=== PATIENT | male | born 1955 | race Caucasian/White ===

== ENCOUNTER 2020-04-12 18:57 | Emergency (ER) | payer BC ==
--- OUTSIDE RECORDS SUMMARY | 2020-04-12 18:59 | XMS REPORT | Clinical Summary ---
:1955 Author Organization [facility] Address [address] [place] [address] Care Team Providers Name Role Phone Latrell Quiroga MD Primary Care Provider Allergies No Known Allergies Medications Medication Sig Dispensed Refills Start Date End Date Status losartan (COZAAR) 100 Take 100 mg by 0 Active MG tablet mouth daily. Active Problems No known active problems Social History Tobacco Use Types Packs/Day Years Used Date Never Smoker Smokeless Tobacco: Never Used Alcohol Use Drinks/Week oz/Week Comments Yes Sex Assigned at Date Recorded Not on file Job Start Date Occupation Industry Not on file Not on file Not on file Travel History Travel Start Travel End No recent travel history available. 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
--- OUTSIDE RECORDS SUMMARY | 2020-04-12 19:02 | XMS REPORT | Continuity of Care Document ---
:1955 Author Organization [facility] t Address [address] [place] [address] Care Team Providers Name Role Phone Latrell Quiroga MD Primary Care Physician Alexi Hoyos Attending Clinician George Stone Attending Clinician Jomar Hernandez Attending Clinician Alexi Hoyos Admitting Clinician Jomar Hernandez Admitting Clinician Problems Condition Condition Condition Status Onset Resolution Last Treating Co mments Source Name Details Category Date Date Treatment Clinician Date G96.0 - Diagnosis Active 2020-03-24 Me moria CEREBROSPI 6-16 11:51:00 l NAL FLUID G96.0 - 00:01: Herm debra LEAK CEREBROSPI 00 NAL FLUID LEAK Active 03/18/2020 [facility] [place] 9999 Diagnosis Active 2020-01-31 Mem oria 4-20 11:44:00 l 9999 00:00: Kvng 00 Active 01/21/2020 [facility] XRAY Diagnosis Active 2020-01-22 Mem oria 4-15 16:18:00 l XRAY 00:00: [place] 00 Active 01/16/2020 [facility] SMALL Diagnosis Active 2016-06-16 Mem oria BOWEL 9-05 15:21:00 l OBSTRUCTIO SMALL 00:00: Caryl nn N BOWEL 00 OBSTRUCTIO N Active 06/07/2016 [facility] Benign Problem Active 2020-03-26 Memor ia intracrani 22:43:47 l al Benign Kvng hypertensi intracrani on al (disorder) hypertensi on (disorder) Active Problem 03/26/2020 [facility] Cerebrospi Problem Active 2020-03-26 M emoria nal fluid 22:43:47 l leak [place] (disorder) Cerebrospi nal fluid leak (disorder) Active Problem 03/26/2020 [facility] Cerebrospi Problem Active 2020-03-26 M emoria nal fluid 22:43:47 l rhinorrhea Gabriel n (disorder) Cerebrospi nal fluid rhinorrhea (disorder) Active Problem 03/26/2020 [facility] Hypertensi Problem Active 2020-03-26 M emoria ve 22:43:47 l disorder, [place] systemic Hypertensi arterial ve (disorder) disorder, systemic arterial (disorder) Active Problem 03/26/2020 [facility] Sleep Problem Active 2020-03-26 Memor ia apnea 22:43:47 l (finding) Sleep Gabriel n apnea (finding) Active Problem 03/26/2020 does not use cpap [facility] OTHER Diagnosis Active 2016-06-16 Mem oria INTESTINAL 15:21:00 l OBSTRUCTIO OTHER Caryl nn N INTESTINAL OBSTRUCTIO N Active [facility] History of Past Illness Condition Condition Condition Status Onset Resolution Last Treating Co mments Source Name Details Category Date Date Treatment Clinician Date Chronic Problem Resolve 2020-03-26 2020-03-26 Memoria inflammati d 05-25 22:43:47 22:43:47 l on of 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 Optic disc Problem Resolve 2020-03-26 2020-03-26 Memoria edema d 04-06 22:43:47 22:43:47 l (disorder) Optic 00:00: Caryl nn disc edema 00 (disorder) Resolved 04/06/2017 Problem 03/26/2020 [facility], [facility] [place] Allergies, Adverse Reactions, Alerts Allergy Allergy Status Severity Reaction(s) Onset Inactive Treating Comm ents Source Name Type Date Date Clinician No Known No Known Active rTinaori a Medicati Medicati l on on Kvng Allergfarheen Cuadra s s Social History Social Habit Start Date Stop Date Quantity Comments Source Sex Assigned At [facility] ethodist Alcohol intake 2018-06-26 2018-06-26 Current drinker [place] 00:00:00 00:00:00 of alcohol (finding) Social History 2016-06-07 2016-06-07 [facility] ermann 23:41:31 23:41:31 Smoking Status Start Date Stop Date Source Never smoker [facility] Medications Ordered Filled Start Stop Current Ordering Indication Dosage Frequency Signature Comments Components Source Medication Medication Date Date Medication? Clinician (SIG) Name Name Bacitracin 2019-0 Yes 1 appl, Jermaine sena 0.5 UNT/MG 5-01 TOP, BID, l Topical 13:38: Apply to Gabriel n Ointment 00 affected area, X 7 day, # 30 gm, 0 Refill(s) Dulcolax 2019-0 No Notes: Memoria Laxative 5- (Same As: l 12:33: Dulcolax, [place] 00 Bisco-Lax) Labetalol 2019-0 No 10 mg, 2 Jermaine sena 5-01 mL, Route: l 04:37: IVP, Drug 00 form: INJ, Q15Min, Dosing Weight 113.2, kg, PRN Hypertensi on, Start date: 01/31/20 23:37:00 CDT, Duration: 30 day, Stop date: 03/01/20 23:36:00 CDT, 0 heparin 2020-0 No Notes: Memoria sodium, 4-30 porcine l porcine 17:00: heparin Kvng 2500 UNT/ML 00 Injectable Solution Sodium 2019-0 Yes 2 spray, Memoria Chloride 4-30 NASAL, l 0.111 16:07: Q2H, # 30 Kvng MEQ/ML 00 mL, 0 Nasal [place] Refill(s) [Cardwell brand of sodium chloride] Amoxicillin 2019-0 Yes 1 tab, PO, Memoria 875 MG / 4-30 [id number], X l Clavulanate 16:07: 8 day, # [place] 125 MG Oral 00 16 tab, 0 Tablet Refill(s) [Augmentin 875-mg] Docusate 2020-0 Yes 100 mg = 1 Mem oria Sodium 100 4-30 cap, PO, l MG Oral 16:07: BID, # 28 Caryl nn Capsule 00 cap, 0 [Colace] Refill(s) magnesium 2020-0 Yes 8.725 gm = Me moria citrate 4-30 150 ml, l 58.2 MG/ML 16:07: PO, ONCE, [place] Oral 00 if no Solution bowel movement in couple days, # 300 ml, 0 Refill(s) sennosides, 2020-0 Yes 17.2 mg = M emoria HALFWAY 8.6 MG 4-30 2 tab, PO, l Oral Tablet 16:07: Bedtime, He [place] 00 PRN Constipati on, X 10 day, # 20 tab, 0 Refill(s) Acetaminoph 2020-0 Yes 1 tab, PO, Memoria en 300 MG / 4-30 Q6H, PRN l Codeine 16:07: Pain, X 15 Herm debra Phosphate 00 day, # 60 30 MG Oral tab, 0 Tablet Refill(s) [Tylenol with Codeine #3] Ondansetron 2020-0 Yes 4 mg = 1 Me moria 4 MG Oral 4-30 tab, PO, l Tablet 16:07: Q8H, PRN Kvng [Zofran] 00 Nausea/vom iting, # 30 tab, 0 Refill(s) Sodium 2020-0 No 2 spray, Memoria Chloride 4-30 Route: l 0.111 13:00: NASAL, Kvng MEQ/ML 00 Q2H, Drug Nasal [place] form: [Cardwell SOLN, brand of Start sodium date: chloride] 01/31/20 8:00:00 CDT, Duration: 30 day, Stop date: 03/01/20 6:00:00 CDT, 0 Amoxicillin 2020-0 No 1 tab, Jermaine sena 875 MG / 4-29 Route: PO, l Clavulanate 23:00: Drug Form: [place] 125 MG Oral 00 TAB, Tablet Dosing [Augmentin Weight 875-mg] 113.2, kg, [id number], Start date: 01/30/20 18:00:00 CDT, Duration: 10 day, Stop date: 02/09/20 6:00:00 CDT, 0 Losartan 2019-0 No Notes: Memoria 4-29 (Same as: l 22:00: Cozaar) ondansetron 2019- No Route: IV, Memoria (ANES) - Drug form: l 19:12: INJ, ONCE, Stop date: 01/30/20 14:12:00 CDT sugammadex 2019-0 No Route: IV, M emoria (ANES) - Drug form: l 19:12: SOLN, ONCE, Stop date: 01/30/20 14:12:00 CDT sodium 2019-0 No Notes: Memoria chloride - (Same as: l nasal spray 19:00: Cardwell, Deep Sea Nasal [place]). propofol 2019-0 No Route: IV, Mem oria (ANES) 01-29 Drug form: l 18:36: INJ, ONCE, Stop date: 01/30/20 13:36:00 CDT magnesium 2019-0 No Route: IV, Me moria sulfate 01-29 Drug form: l (ANES) 17:55: INJ, ONCE, Stop date: 01/30/20 12:55:00 CDT rocuronium 2019-0 No Route: IV, M emoria (ANES) 01-29 Drug form: l 17:30: INJ, ONCE, Stop date: 01/30/20 12:30:00 CDT sugammadex 2019-0 No Notes: Memor ia - (Same as: l 16:20: [place]ion) Hydralazine 2019-0 No Notes: Jermaine sena - (Same as: l 15:58: Apresoline ) Push over 5 minutes Labetalol 2019-0 No 10 mg, 2 Jermaine sena 4-29 mL, Route: l 15:58: IVP, Drug form: INJ, Q5Min, Dosing Weight 113.2, kg, PRN Elevated BP, Start date: 01/30/20 10:58:00 CDT, Duration: 5 doses or times, Stop date: 01/31/20 10:00:00 CDT, 0 Acetaminoph 2019- No Notes: Max Memoria en 01-29 acetaminop l 15:58: hen 4000 mg/day (4 gm/day). (Same as: Tylenol Extra Strength) Oxycodone No Notes: Memori a Hydrochlori 01-29 (Same as: l de 5 MG 15:58: Roxicodone Herm debra Oral Tablet ) Hydromorpho No Notes: Jermaine sena ne 01-29 Same as l 15:58: Dilaudid Flumazenil No Notes: Memor ia 01-29 (Same as: l 15:58: Romazicon) Naloxone No Notes: Memoria 01-29 Same as l 15:58: Narcan Ondansetron No Notes: Jermaine sena 01-29 (Same as: l 15:58: Zofran) MEDICATION WASTE Product Size: 4 mg Product Wasted: ___ mg dexamethaso No Route: IV, Memoria ne (ANES) 01-29 Drug form: l 15:05: INJ, ONCE, Stop date: 01/30/20 10:05:00 CDT phenylephri No Route: IV, Memoria ne (ANES) 01-29 Drug form: l 100 14:23: INJ, Start [place] date: 01/30/20 9:23:00 CDT, Stop date: 01/30/20 10:23:00 CDT ePHEDrine No Route: IV, Me moria (ANES) 01-29 Drug form: l 14:09: INJ, ONCE, Stop date: 01/30/20 9:09:00 CDT phenylephri 0 No Route: IV, Memoria ne (ANES) 01-29 Drug form: l 14:09: INJ, ONCE, [place] Stop date: 01/30/20 9:09:00 CDT Cefazolin 2019- Yes Notes: Memori a 01-29 (Same as l 14:00: Ancef) Docusate No Notes: Memoria 01-29 (Same as: l 14:00: Colace) (Do Not Crush) sennosides, No Notes: Jermaine sena HALFWAY 01-29 (Same as: l 14:00: Senokot) Saline No Notes: Memoria Flush 0.9% 01-29 (Same as: l 14:00: BD Posiflush) ceFAZolin No Route: IV, Me moria (ANES) 01-29 Drug form: l 13:59: INJ, ONCE, Stop date: 01/30/20 8:59:00 CDT lidocaine No Route: IV, Me moria (ANES) 01-29 Drug form: l 13:34: INJ, ONCE, Stop date: 01/30/20 8:34:00 CDT propofol No Route: IV, Mem oria (ANES) 01-29 Drug form: l 13:34: INJ, ONCE, Stop date: 01/30/20 8:34:00 CDT rocuronium No Route: IV, M emoria (ANES) 01-29 Drug form: l 13:34: INJ, ONCE, Stop date: 01/30/20 8:34:00 CDT fentaNYL No Route: IV, Mem oria (ANES) 01-29 Drug form: l 13:34: INJ, ONCE, Stop date: 01/30/20 8:34:00 CDT propofol No Route: IV, Mem oria (ANES) 10 01-29 Drug form: l mg 13:10: INJ, Start date: 01/30/20 8:10:00 CDT, Stop date: 01/30/20 9:10:00 CDT remifentani No Route: IV, Memoria l (ANES) 1 01-29 Drug form: l mg 13:10: INJ, Start date: 01/30/20 8:10:00 CDT, Stop date: 01/30/20 9:10:00 CDT Sodium No 1,000 mL, Memori a Chloride 01-29 Rate: 100 l 0.9% IV 13:04: ml/hr, Kvng 1,000 mL 00 Infuse over: 10 hr, Route: IV, Dosing Weight 113.2 kg, Total Volume: 1,000, Start date: 01/30/20 8:04:00 CDT, Duration: 30 day, Stop date: 02/29/20 8:03:00 CDT, 2.39, m2, 0 Acetaminoph 2019- No Notes: Do M emoria en - not exceed l 13:04: 4 gm/day. [place] (Same as: Tylenol) Acetaminoph No Notes: Jermaine sena en 325 MG / 01-29 (Same as: l Hydrocodone 13:04: [place] Caryl nn Bitartrate 00 325/5) Do 5 MG Oral not exceed Tablet 4gm/day of acetaminop hen. Acetaminoph No Notes: Do M emoria en 325 MG / 01-29 not exceed l Hydrocodone 13:04: 4gm/day of [place] Bitartrate 00 acetaminop 10 MG Oral hen. Tablet (Same as: [place] 325/10) Bisacodyl 2019-0 No Notes: Memori a - (Same As: l 13:04: Dulcolax, Bisco-Lax) Metoclopram 2019-0 No Notes: Jermaine sena juanis 01-29 (Same as: l 13:04: Reglan) Ondansetron 2019-0 No Notes: Jermaine sena - (Same as: l 13:04: Zofran) MEDICATION WASTE Product Size: 4 mg Product Wasted: ___ mg Dilaudid 2019-0 No Notes: Memoria - Same as l 13:04: Dilaudid Tums 2019-0 No Notes: Memoria - (Same As: l 13:04: Tums) Calcium Carbonate 500 mg = 200 mg elemental calcium Dose = mg calcium carbonate ( mg elemental calcium) Labetalol 2019-0 No 20 mg, 4 Jermaine sena 4-29 mL, Route: l 13:04: IVP, Drug form: INJ, Q15Min, Dosing Weight 113.2, kg, Start date: 01/30/20 8:04:00 CDT, Duration: 3 doses or times, Stop date: 01/30/20 8:34:00 CDT, 0 Hydralazine No 20 mg, 1 Me moria 4-29 mL, Route: l 13:04: IVP, Drug form: INJ, Q4H, Dosing Weight 113.2, kg, PRN Hypertensi on, Start date: 01/30/20 8:04:00 CDT, Duration: 30 day, Stop date: 02/29/20 8:03:00 CDT, 0 Saline 2020- No Notes: Memoria Flush 0.9% 01-29 (Same as: l 13:04: BD Posiflush) Insulin No Notes: Memoria regular 01-29 (Same as: l 13:04: Humulin R) Roll in palms of hands gently; Do not shake vigorously . WASTE: F/P - Black; E - Municipal Trash Bin Stable for 31 days at room temperatur e Expires in days from ____Date Lactated No Route: IV, Mem oria Ringers 01-29 Total l Injection 12:40: Volume: Caryl nn IV (ANES) 00 1,000, 1000 mL Start date: 01/30/20 7:40:00 CDT, Stop date: 01/30/20 8:40:00 CDT Isolyte S No Notes: Memori a PH 7.4 01-29 (Same as: l 1,000 mL 12:21: Isolyte S PH7.4, Normosol-R PH 7.4, Plasma-Lyt e A ) Tylenol No Notes: Max Jermaine sena 01-29 acetaminop l 12:09: hen 4000 Kvng 00 mg/day (4 gm/day). (Same as: Tylenol Extra Strength) ceFAZolin No Notes: Memori a 01-29 (Same as l 04:00: Ancef) Vitamin D3 2019-0 Yes QPM, 0 Memor ia 01-21 Refill(s) l 14:35: Kvng 00 12 HR No 500 mg = 1 Memori a Acetazolami 4-02 cap, PO, l de 500 MG 20:42: Daily, # Herm debra Extended 00 30 cap, 2 Release Refill(s), Capsule Pharmacy: [Diamox] [facility] topwillismate Yes 25 mg = 1 Me moria 25 MG Oral 3-04 tab, PO, l Tablet 20:24: Bedtime, # Caryl nn [Topamax] 20 30 tab, 4 Refill(s), Pharmacy: [facility] topiramate No 25 mg = 1 Me moria 25 MG Oral 1-29 tab, PO, l Tablet 19:53: Bedtime, X Caryl nn [Topamax] 00 30 day, # 30 tab, 4 Refill(s), Pharmacy: [facility] losartan Yes 100mg QD Take 100 [place] (COZAAR) 9-24 mg by Methodi 100 MG 10:13: mouth st tablet 12 daily. Losartan No Notes: Memoria 06-14 (Same as: l 15:38: Cozaar) fat No Notes: Memoria emulsion, 06-13 (Same as: l intravenous 03:00: Intralipid , Liposyn) Infuse through a 1.2 micron filter TPN No Notes: Per Memoria solution, 06-13 hospital l adult 2,042 03:00: policy, Her mcgee mL 00 bag must be changed every 24hr. Sodium No 250 mL, Memoria Chloride 06-13 Route: l 0.9% IV 00:06: IVPB, Start date: 06/12/16 19:06:00 CDT, Duration: 30 day, Stop date: 07/12/16 19:05:00 CDT, PRN Line Flush BD Normal No Notes: Memori a Saline 06-13 (Same as: l Flush 00:06: BD Posiflush) Protonix No Notes: For Mem oria 06-12 IV push l 12:30: reconstitu te with 10 ml 0.9% sodium chloride and push over 2 minutes. (Same as: Protonix) Lovenox No Notes: Memoria 06-10 (Same as: l 19:00: Lovenox) Kvng 00 Reglan No Notes: Memoria 06-08 (Same as: l 17:00: Reglan) [place] 00 Lovenox No Notes: Memoria 06-08 (Same as: l 14:00: Lovenox) Kvng 00 phenol No Notes: Memoria 06-07 Chlorasept l 15:36: ic [place] Kvng (Same as: Chlorasept ic, Sore Throat [place]) WASTE: F/P - Black; E - Municipal Trash Bin losartan 50 Yes 50 mg = 1 M emoria mg oral 06-07 tab, PO, l tablet 12:55: Daily, # Kvng 00 30 tab, 0 Refill(s) Morphine No Notes: Memoria 06-07 (Same l 12:44: as:MORPhin Kvng 00 e Sulfate) Zofran No Notes: Memoria 06-07 (Same as: l 12:43: Zofran) [place] MEDICATION WASTE Product Size: 4 mg Product Wasted: ___ mg D5W 1/2NS + No Notes: Jermaine sena KCL 20mEq/L 06-07 PREMIX IV l 1000ml 12:42: - Do Not [place] (Premix) 00 Alter 1,000 mL WASTE: F/P - Sink; E - Municipal Trash Bin Vital Signs Vital Name Observation Time Observation Value Comments Source Systolic (mm Hg) 2020-02-01 15:25:00 Jermaine rial Kvng Diastolic (mm Hg) 2020-02-01 15:25:00 Mem orial [place] Heart Rate 2020-02-01 15:25:00 [facility] [place] Heart Rate 2020-02-01 13:37:00 [facility] [place] Systolic (mm Hg) 2020-02-01 13:37:00 Jermaine rial Kvng Diastolic (mm Hg) 2020-02-01 13:37:00 Mem orial Kvng Temperature Oral (F) 2020-02-01 12:07:00 97.8 F Memorial Kvng Heart Rate 2020-02-01 12:07:00 Memorial Kvng Respitory Rate 2020-02-01 12:07:00 Memori al Kvng Systolic (mm Hg) 2020-02-01 12:07:00 Jermaine rial Kvng Diastolic (mm Hg) 2020-02-01 12:07:00 Mem orial Kvng Temperature Oral (F) 2020-02-01 09:06:00 98.3 F Memorial Kvng Respitory Rate 2020-02-01 09:06:00 Memori al [place] Respitory Rate 2020-02-01 05:38:00 Memori al Kvng Temperature Oral (F) 2020-02-01 04:14:00 97.6 F Memorial Kvng Height 2020-01-30 11:03:00 177.8 cm Memorial Kvng Weight 2020-01-30 11:03:00 [facility] [place] BMI Calculated 2020-01-30 11:03:00 Memori al [place] Height 2020-01-22 14:47:00 177.8 cm [facility] [place] Weight 2020-01-22 14:47:00 [facility] [place] BMI Calculated 2020-01-22 14:47:00 Memori al [place] Systolic (mm Hg) 2020-01-18 16:00:00 Jermaine rial [place] Diastolic (mm Hg) 2020-01-18 16:00:00 Mem orial Kvng Systolic (mm Hg) 2020-01-18 15:30:00 Jermaine rial Kvng Diastolic (mm Hg) 2020-01-18 15:30:00 Mem orial [place] Systolic (mm Hg) 2020-01-18 13:45:00 Jermaine rial [place] Diastolic (mm Hg) 2020-01-18 13:45:00 Mem orial Kvng Respitory Rate 2020-01-18 13:15:00 Memori al Kvng Heart Rate 2020-01-18 13:15:00 [facility] [place] Height 2020-01-18 13:10:00 177.8 cm [facility] [place] Weight 2020-01-18 13:10:00 Memorial Kvng BMI Calculated 2020-01-18 13:10:00 Memori al [place] Systolic (mm Hg) 2020-01-08 16:03:00 Jermaine rial [place] Diastolic (mm Hg) 2020-01-08 16:03:00 Mem orial [place] Heart Rate 2020-01-08 16:03:00 [facility] [place] Respitory Rate 2020-01-08 16:03:00 Memori al [place] Height 2020-01-08 16:03:00 177.8 cm Memorial Kvng Weight 2020-01-08 16:03:00 Memorial Kvng BMI Calculated 2020-01-08 16:03:00 Memori al Kvng Systolic (mm Hg) 2018-10-31 19:32:00 Jermaine rial Kvng Diastolic (mm Hg) 2018-10-31 19:32:00 Mem orial Kvng Heart Rate 2018-10-31 19:32:00 [facility] [place] Respitory Rate 2018-10-31 19:32:00 Memori al [place] Height 2018-10-31 19:32:00 170.18 cm Memorial Kvng Weight 2018-10-31 19:32:00 [facility] [place] BMI Calculated 2018-10-31 19:32:00 Memori al [place] Systolic (mm Hg) 2016-06-16 13:19:00 Jermaine rial Kvng Diastolic (mm Hg) 2016-06-16 13:19:00 Mem orial [place] Respitory Rate 2016-06-16 13:19:00 Memori al [place] Temperature Oral (F) 2016-06-16 13:19:00 98.3 F [facility] [place] Heart Rate 2016-06-16 13:19:00 Memorial Kvng Heart Rate 2016-06-16 09:36:00 [facility] [place] Respitory Rate 2016-06-16 09:36:00 Memori al Kvng Temperature Oral (F) 2016-06-16 09:36:00 98.4 F [facility] [place] Systolic (mm Hg) 2016-06-16 09:36:00 Jermaine rial Kvng Diastolic (mm Hg) 2016-06-16 09:36:00 Mem orial [place] Heart Rate 2016-06-16 05:00:00 Memorial Kvng Temperature Oral (F) 2016-06-16 05:00:00 98.2 F [facility] [place] Respitory Rate 2016-06-16 05:00:00 Memori al Kvng Systolic (mm Hg) 2016-06-16 05:00:00 Jermaine rial [place] Diastolic (mm Hg) 2016-06-16 05:00:00 Mem orial [place] Weight 2016-06-12 14:00:00 [facility] [place] Height 2016-06-12 14:00:00 177.8 cm [facility] [place] BMI Calculated 2016-06-12 14:00:00 Memori al [place] Weight 2016-06-07 15:06:00 Memorial Kvng BMI Calculated 2016-06-07 15:06:00 Memori al [place] Height 2016-06-07 15:06:00 177.8 cm Memorial Kvng BMI Calculated 2016-06-07 15:02:00 Memori al Kvng Weight 2016-06-07 15:02:00 [facility] Kvng Height 2016-06-07 15:02:00 177.8 cm [facility] Kvng Procedures Procedure Date / Time Performed Performing Clinician [facility] e Spinal puncture, lumbar, 2020-01-18 15:41:00 Mem orial [place] diagnostic; Vasectomy reversal 1992-10-03 00:00:00 [facility] Kvng Vasectomy 1982-10-03 00:00:00 [facility] Her mcgee Appendectomy 1957 00:00:00 [facility] Planned Activity Planned Date Details Comments Source Future Scheduled 2020-05-03 INFLUENZA VACCINE [place] [facility] 00:00:00 [code = INFLUENZA VACCINE] Future Scheduled 2007 COLONOSCOPY SCREENING [place] [facility] 00:00:00 [code = COLONOSCOPY SCREENING] Future Scheduled 2007 SHINGLES VACCINES [place] [facility] 00:00:00 (#1) [code = SHINGLES VACCINES (#1)] Encounters Start End Encounter Admission Attending Care Care Encounter Source Date/Time Date/Time Type Type Clinicians Facility Department ID 2020-01-30 Inpatient [facility] [facility] 05:25:00 2020-03-24 2020-03-24 Outpatient Romain, [facility] [id number] 11:41:00 23:59:00 Lloyd Truong 2020-01-30 2020-02-01 Outpatient Romani, [facility] [id number] 05:25:00 11:30:00 Lloyd Truong 2020-01-31 2020-01-31 Outpatient RIGO StoneSCHRIC MISCHER [id number] 15:30:00 15:30:00 Juliano Vazquez 2020-01-18 2020-01-18 Outpatient Hoyos, [facility] [id number] 07:58:00 23:59:00 Lloyd Alexi 00 2020-01-18 2020-01-18 Outpatient [id number] 07:58:00 07:58:00 2020-01-08 2020-01-08 Outpatient Chase MHMISCHER MHMISCHER [id number] 10:30:00 23:59:59 Juliano 08 George 2020-01-01 2020-01-01 Outpatient Chase MHMISCHER MHMISCHER [id number] 14:30:00 23:59:59 Juliano 06 George 2019-06-15 2019-06-16 Outpatient MHMISCHER MHMISCHER [id number] 10:31:55 23:59:59 2019-03-26 2019-03-27 Outpatient MHMISCHER MHMISCHER [id number] 09:35:04 23:59:59 2019-02-27 2019-02-27 Outpatient Chase, MHMISCHER MHMISCHER [id number] 13:15:00 13:15:00 Juliano 05 George 2018-10-31 2018-10-31 Outpatient Chase MHMISCHER MHMISCHER [id number] 13:15:00 23:59:59 Juliano 04 George 2018-07-04 2018-07-04 Outpatient Chase MHMISCHER MHMISCHER [id number] 10:00:00 10:00:00 Juliano 03 George 2016-06-07 2016-06-16 Outpatient [facility] [id number] 06:40:00 15:10:00 Lopez Smallwood Results Test Description Test Time Test Comments Results Result Comments Source CHEM PANEL 2020-01-31 131 [facility] Caryl nn 13:09:00 CHEM PANEL 2020-01-31 18 [facility] Caryl nn 13:09:00 CHEM PANEL 2020-01-31 1.38 [facility] Caryl nn 13:09:00 CHEM PANEL 2020-01-31 141 [facility] Caryl nn 13:09:00 CHEM PANEL 2020-01-31 3.6 [facility] Caryl nn 13:09:00 CHEM PANEL 2020-01-31 117 [facility] Caryl nn 13:09:00 CHEM PANEL 2020-01-31 19 [facility] Caryl nn 13:09:00 CHEM PANEL 2020-01-31 8.4 [facility] Caryl nn 13:09:00 CHEM PANEL 2020-01-31 8.6 [facility] Caryl nn 13:09:00 CHEM PANEL 2020-01-31 54 [facility] Caryl nn 13:09:00 HEMATOLOGY 2020-01-31 13.0 [facility] Caryl nn 13:09:00 HEMATOLOGY 2020-01-31 4.12 [facility] Caryl nn 13:09:00 HEMATOLOGY 2020-01-31 12.2 [facility] Caryl nn 13:09:00 HEMATOLOGY 2020-01-31 36.4 [facility] Caryl nn 13:09:00 HEMATOLOGY 2020-01-31 88.5 [facility] Caryl nn 13:09:00 HEMATOLOGY 2020-01-31 13:09:00 Test Item Value Reference Range Interpretation Comme nts MCH (test code = MCH) 29.6 pg 27.0-31.0 [facility] [id number] 13:09:0033.4[facility]annHEMATOLOGY 2020-01-31 13:09:0013.8[facility] KysqtybPOQQEETJBR5608-75-24 13:09:26616Kuzzzwej PtjobyhRLQSYFLFRX7857-01-16 13:09:008.5[facility] [id number] 13:09:00Normal (01/31/20 8:09 AM)[facility] DwdlrpfAOMZYZZTHL0870-00-28 13:09:00 Normal (01/31/20 8:09 AM)[facility] SzafqsiTAOBZOOFSI5813-54-07 13:09:0087.1 [facility] HnwnatrPZTTJDFMZM3162-01-86 13:09:004.8[facility] HermannHEMATOLOGY 2020-01-31 13:09:007.9[facility] [id number] 13:09:000.2[facility] TwykxgcQMRHONFFZZ0096-94-54 13:09:0011.4[facility] KozqojtADFJJDNYDL4748-22-33 13:09:000.6[facility] MbgpwijBZHIVHVSQJ8452-98-55 13:09:001.0[facility]annBLOOD BANK AQDSUKC8497-07-95 11:12:00Negative (01/30/20 6:12 AM)[facility]annCHEM LGDVJ5996-81-03 11:12:40220Gvsqlnmr HermannCHEM IOPAK5914-22-69 11:12:0021 [facility]annCHEM DWXFC8198-75-74 11:12:001.29[facility]annCHEM PANEL 2020-01-30 11:12:31563Swrnlpdx HermannCHEM YBAVO3215-48-96 11:12:004.0[facility]annCHEM MNENR2211-04-78 11:12:28856Gzpxwuuq HermannCHEM PIPZA2121-34-22 11:12:0019[facility] HermannCHEM BYSYI9114-77-18 11:12:009.1[facility]annCHEM ORKVP2430-57-19 11:12:0012.0[facility] HermannCHEM NECNF3725-64-16 11:12:0059 [facility] WzyfliyIFRCOIYURG5484-57-70 11:12:0073.2[facility]annHEMATOLOGY 2020-01-30 11:12:0017.7[facility] KvdzyjbZJLPFFRURV8894-09-83 11:12:007.2[facility] VrecemjJIICVCHYTX4349-93-11 11:12:001.5[facility] LzswwsaNIABUITRKT1042-43-68 11:12:000.4[facility] SuxgbpaOALOVVSGAN0018-27-10 11:12:005.3[facility] Kvng ZUPUOXCTSH5357-01-92 11:12:001.3[facility] AalsfcsASBUOPEIBY0900-78-57 11:12:000.5 [facility] MwmglqqIFCTYAQMBV9151-57-11 11:12:000.1[facility]annHEMATOLOGY 2020-01-30 11:12:007.2[facility] GzedetwEQLYHLEILU4545-79-09 11:12:005.22[facility] HuwcdlyXULBICXNOX2967-95-38 11:12:0015.8[facility] YdndhfrGJCFFPQWPB9867-12-21 11:12:0046.5[facility] AtnsslfTJNVNTCVFN0116-85-44 11:12:0089.2[facility] HEYYODFPQO4912-96-24 11:12:00 Test Item Value Reference Range Interpretation Comments MCH (test code = MCH) 30.3 pg 27.0-31.0 [facility] JdidtrpEDCRNQSYOL9517-93-66 11:12:0033.9[facility]annHEMATOLOGY 2020-01-30 11:12:0013.4[facility] XdcjrhkFVYPYSCEWE8130-93-90 11:12:07901Kihqmzcy FcdzbooRHYACGNRGJ3473-99-07 11:12:008.5[facility] YvkmnawDKQYKIXOYL1635-74-38 11:12:00 Test Item Value Reference Range Interpretation Comments PT (test code = PT) 12.8 s 12.0-14.7 [facility] BuxebrkQDISNCBQNK4987-33-83 11:12:00 Test Item Value Reference Range Interpretation Comments INR (test code = INR) 0.96 1 0.85-1.17 [facility] LtpthqzWOJCAMMHYE1342-51-40 11:12:00 Test Item Value Reference Range Interpretation Comments PTT (test code = PTT) 28.8 s 22.9-35.8 [facility] CpgyfexEGSJWRKZOX5654-30-64 12:19:00Not Detected (01/28/20 7:19 AM) [facility]annCHEM WOWJI7806-40-76 20:52:0013[facility]annCHEM PANEL 2020-01-01 20:52:001.19[facility]annCHEM VQZWF9706-96-23 20:52:0065[facility]annCHE[facility] KJFOE3414-93-76 20:52:0075[facility]annCHEM KUBJV5277-91-64 09:50:000.90[facility]annCHEM DNPJJ5003-77-88 09:50:003.9[facility]annCHEM WLNOE3467-19-56 09:50:24895Fhhawqne HermannCHEM PJAGV1178-28-87 09:50:12193 [facility] MBRBA4800-35-34 09:50:0025[facility]annCHEM PANEL 2016-06-16 09:50:0011.9[facility]annCHEM FZZFV6778-35-10 09:50:008.6[facility]annCHEM NUXGN2168-19-55 09:50:0094[facility]annCHEM SDUET1187-07-97 09:50:78377Yckrzhmj HermannCHEM TECOW5969-02-14 09:50:0014[facility]annCHEM MTSKP8307-88-26 09:50:003.5[facility]annCHEM VYDTZ4447-20-22 09:50:002.1 [facility] UTZMN0198-47-33 10:35:002.3[facility]annCHEM PANEL 2016-06-15 10:35:0083[facility]annCHEM HLDNZ2815-15-67 10:35:96077Rauxzuvk HermannCHEM LXPBG4938-98-90 10:35:0017[facility]annCHEM SHJZN2561-89-04 10:35:001.00[facility]annCHEM QLECO0446-26-62 10:35:008.5[facility]annCHEM WNLYP6328-09-01 10:35:0012.7[facility]annCHEM OKUKS0700-60-39 10:35:01078 [facility]CHE[facility] IFUPS8043-52-99 10:35:003.7[facility]annCHEM PANEL 2016-06-15 10:35:75778Snuksbev HermannCHEM APFWL2655-14-94 10:35:0025[facility]annCHEM JMFHA4694-45-31 10:35:003.6[facility]annCHEM OGPYF0177-84-25 10:29:14931Eqdsrnin HermannCHEM PMOIY4875-92-97 10:29:0018[facility]annCHEM GXMNN9742-01-72 10:29:45870Tyaqemmj HermannCHEM JSSCX3809-61-64 10:29:0026 [facility] RDYVA1291-12-70 10:29:008.5[facility]annCHEM PANEL 2016-06-14 10:29:0014.8[facility]annCHEM LYEKG9652-88-77 10:29:003.8[facility]annCHEM ZZPJM6725-03-06 10:29:0099[facility]annCHEM SPJFJ3600-94-89 10:29:0083[facility]annCHEM CEJCU6706-96-97 10:29:001.00[facility]annCHEM AYVZX3134-25-94 10:29:002.5[facility]annCHEM KNFLC8820-06-06 10:29:004.2 [facility]CHE[facility] QJFZY4273-91-90 11:02:000.5[facility]annCHEM PANEL 2016-06-13 11:02:0083[facility]annCHEM IJWOA3956-56-83 11:02:000.8[facility]annCHEM ECCRC5957-36-53 11:02:004.0[facility]annCHEM GZIWR3198-86-19 11:02:000.4[facility]annCHEM UBIGK5164-26-30 11:02:000.1[facility]annCHEM QERGI8091-49-68 11:02:0024[facility]annCHEM HXLYB1067-10-74 11:02:003.1 [facility]CHE[facility] NLPVU0402-24-47 11:02:007.1[facility]annCHEM PANEL 2016-06-13 11:02:0058[facility] FlhunhkPTTYEJCCXT5974-44-87 11:02:0059.4[facility] GlrtxgzLYYILJFADZ0715-28-74 11:02:0016.6[facility] RiabxheTSTUPJ7319-23-25 11:02:41854Sewbcrhh HermannCHEM XFRJO2839-40-71 10:25:000.7[facility]annCHEM BFRWO3463-66-20 10:25:004.2[facility]annCHEM ZXHND3155-04-94 10:25:0013 [facility]annCHE[facility] VFLLX7684-90-06 10:25:0023[facility]annCHEM PANEL 2016-06-12 10:25:0079[facility]annCHEM LYXNC9501-07-24 10:25:000.7[facility]annCHEM RFZLN2253-42-88 10:25:0057[facility]annCHEM KUHSW4157-51-19 10:25:002.9[facility]annCHEM MVFZE6042-57-21 10:25:007.1[facility] Kvng QYSVYBWJBL6000-36-16 09:50:000.9[facility] XhpavegQXKBVCDAGA0782-99-98 09:50:004.9 [facility] KwabbacBCXHONZGZQ2107-53-61 09:50:000.2[facility]annHEMATOLOGY 2016-06-10 09:50:0013.6[facility] JuvigesNISZPXZJWS6184-20-14 09:50:001.9[facility] SeevxkmOOOPIAXPAA1209-41-58 09:50:000.4[facility] YhvsnqeEBFQHWRRVR8970-02-99 09:50:000.1[facility] VguggpeQJFMCLYSGP3718-16-71 09:50:007.1[facility] Kvng RXXTKJLYIZ3311-49-96 09:50:0077.2[facility] BpiqzmjKZMSOGSKPU5789-56-99 09:50:00 8.5[facility] YoklnspNDLIAQVXTN2625-58-77 09:50:95415Efvijbgn HermannHEMATOLOGY 2016-06-10 09:50:0013.1[facility] VwqomczBQHQZTMPPQ2162-07-01 09:50:004.66[facility] FluawefPDMBAOGNDJ4035-52-16 09:50:006.4[facility] EvvetlwWXXMQXLWLE1830-34-02 09:50:00 Test Item Value Reference Range Interpretation Comments MCH (test code = MCH) 30.5 pg 27.0-31.0 [facility] IskrfubXQXSPCNKIF1127-35-74 09:50:0034.3[facility] HermannHEMATOLOGY 2016-06-10 09:50:0014.2[facility] GzwgdmiWORAHEGOPC1176-94-35 09:50:0088.9[facility] XjczmbzIOOHKOPEVN3002-84-84 09:50:0041.4[facility] VfcoftzRGOVZWCSYE0478-38-97 09:18:000.1[facility] YbpnzjhWIMSGPSBCW4634-28-92 09:18:002.1[facility] OLINQIEEQN5585-45-01 09:18:000.5[facility] RtksstxEMMNVCYAQY8045-29-77 09:18:000.9 [facility] PnctknuRDXHUUXUVR9497-78-13 09:18:005.2[facility]annHEMATOLOGY 2016-06-09 09:18:000.2[facility] JkjexocFKAGVJPCIS7739-51-58 09:18:0013.6[facility] JkvhogoBMFOYOABYR5575-93-71 09:18:0076.6[facility] CemdmdxIQDHLIQYLL6511-37-96 09:18:007.5[facility] IoabpxdBDRYWWKLWL3490-22-49 09:18:00 Test Item Value Reference Range Interpretation Comments MCH (test code = MCH) 29.9 pg 27.0-31.0 [facility] VepeevbHMBGAKCALR3577-83-80 09:18:43500Yxuntgik HermannHEMATOLOGY 2016-06-09 09:18:008.8[facility] JewaptmHBGLOLDVAT9682-52-65 09:18:0033.3[facility] FtdqjqdJDDNDKBONW7560-31-60 09:18:0013.4[facility] LyqjfyjUOYRBNRUDA7620-46-33 09:18:0014.3[facility] GbtjssbPZHGNGSPEK7634-19-68 09:18:0042.9[facility] FJKVMHWGMB9615-65-38 09:18:0089.9[facility] CdcvoceFJRODFUOTR0648-73-89 09:18:00 4.77[facility] SgxdwtrJWNZFEQZXK2614-12-27 09:18:006.8[facility] HermannHEMATOLOGY 2016-06-08 09:43:008.6[facility] XzezdlsTYDDOUZXRI9472-96-36 09:43:00 Test Item Value Reference Range Interpretation Comments MCH (test code = MCH) 30.0 pg 27.0-31.0 [facility] BzciontEVFBRZLQLM7055-98-52 09:43:0091.1[facility] HermannHEMATOLOGY 2016-06-08 09:43:0045.3[facility] JulqvpyWKIYXDNDJX4169-45-35 09:43:0014.9[facility] QihilweRZAMXISRIV4001-20-11 09:43:0033.0[facility] HfisgqmDMLGHQYVZP4923-80-45 09:43:0013.3[facility] NqipybaEWZUFPPZWM3072-10-17 09:43:31676Ktzxwkde [place] MEZRTVMJDF5142-25-48 09:43:004.98[facility] JctmdnrOYVXINHIYR3420-67-80 09:43:00 7.6[facility] ZpasjfsFKWAGIXWYY5352-70-51 09:43:000.1[facility] HermannHEMATOLOGY 2016-06-08 09:43:008.2[facility] NmptktsGGYIZMCVOV8451-97-18 09:43:0079.1[facility] VfgwrqsRWIEMMVCUS6048-99-34 09:43:000.2[facility] TaogwclOEBQZXFGKU7385-99-03 09:43:000.9[facility] TdjdnquXZFRHTEOFM2034-72-79 09:43:0011.6[facility] QKBNDJXPNY0527-28-21 09:43:006.0[facility] RxhatbxVRVQIEYVAT2569-80-63 09:43:000.9 [facility] LftyzvjDOVLGPLGXK3569-45-49 09:43:000.6[facility]
--- NOTE | 2020-04-12 19:35 | RAD REPORT ---
EXAM DESCRIPTION: CT - Ct Stroke Brain Wo Cont - 04/12/2020 7:10 pm CLINICAL HISTORY: WEAKNESS COMPARISON: Head Brain Wo Cont dated 01/04/2020; Sinus Wo Cont dated 01/04/2020 TECHNIQUE: Axial 5 millimeter thick images of the head were obtained without IV contrast. All CT scans are performed using dose optimization technique as appropriate and may include automated exposure control or mA/KV adjustment according to patient size. FINDINGS: A right-sided predominantly chronic subdural hematoma is present involving the right front al lobe and portions of the right parietal lobe. This measures up to 12-13 mm in thickness. There is mass effect with 4 mm of right to left midline shift. Since the prior examination the patient has had a shunt tube placed via a right frontal craniectomy. Tip of the shunt tube is in the frontal horn ri ght lateral ventricle. Ventricles have decreased in size since the January study. The subdural hematoma is almost entirely hypodense. A few hyperdense strands are present which may indicate some minimal a ctive bleeding. No post shunt tube placement imaging is available to determine when the subdural romeo ection developed. No acute intraparenchymal hemorrhage. No intraventricular hemorrhage. An acute cortical based infarct ion is not identifiable. Arterial and physiologic calcifications are present. Patient has no signific ant atrophy. Chronic ischemic changes are minimal. Visualized portions of the mastoid air cells, paranasal sinuses, and orbits are unremarkable. Findings telephoned to the emergency department 7:27 p.m. IMPRESSION: Right-sided subdural hematoma is present almost entirely chronic. A few small areas of h yperdensity are present along the anterior and posterior margins that are suspected to be acute. Mass-effect is present on the right frontal lobe with 4 mm of right to left midline shift. Shunt tube is in place via a right frontal approach with the tip in the frontal horn right lateral ve ntricle. Ventricles have decompressed since the January study.
[2020-04-12 19:54] LABS: Absolute Lymphocytes (CBC) 1.4 K/uL (0.7-4.9); Basophils % 0.9 % (0-1.3); Hematocrit 41.6 % (39.6-49.0); Lymphocytes % 20.6 % (15.3-44.8); MPV 8.3 fL (7.6-11.3); RBC Red Blood Cell Count 4.72 M/uL (4.33-5.43)
[2020-04-12 19:57] LABS: Protime INR 1.02
[2020-04-12 20:04] LABS: Potassium 3.6 mmol/L (3.5-5.1)
--- NOTE | 2020-04-12 20:39 | EDPHYS ---
Physician Documentation [facility] Name: Brice Roca Age: 64 yrs Sex: Male : 1955 Arrival Date: 04/12/2020 Time: 18:59 Bed 3 Private MD: ED Physician Panfilo Crowell HPI: 04/12 20:48 This 64 yrs old Male presents to ER via Wheelchair with complaints of S/S of tw4 Possible Stroke. 20:48 The patient's problem is reported as paresthesias, in left upper extremity, in left tw4 lower extremity. Onset: The symptoms/episode began/occurred today. Duration: This was a single incident. Duration: symptoms have eresolved. Context: the episode(s) was witnessed, by family, symptoms became apparent at 18:00. occurred at home, occurred while the patient was at rest. The symptoms are alleviated by nothing. The symptoms are aggravated by nothing. Associated signs and symptoms: The patient has no apparent associated signs or symptoms. Severity of symptoms: At their worst the symptoms were mild in the emergency department the symptoms have resolved. The patient has not experienced similar symptoms in the past. Historical: - Allergies: 19:31 No Known Allergies; ca1 - Home Meds: 19:31 losartan 50 mg Oral tab 1 tab once daily [Active]; ca1 - PMHx: 19:31 Hypertension; ca1 - PSHx: 19:31 Hernia repair; Shunt; ca1 - Immunization history:: Adult Immunizations up to date. - Social history:: Smoking status: Patient denies any tobacco usage or history of. ROS: 20:52 Constitutional: Negative for fever, chills, and weight loss, Eyes: Negative for injury, tw4 pain, redness, and discharge, Cardiovascular: Negative for chest pain, palpitations, and edema, Respiratory: Negative for shortness of breath, cough, wheezing, and pleuritic chest pain, Abdomen/GI: Negative for abdominal pain, nausea, vomiting, diarrhea, and constipation, Back: Negative for injury and pain, MS/Extremity: Negative for injury and deformity, Skin: Negative for injury, rash, and discoloration. 20:52 Neuro: Positive for numbness, weakness. Exam: 20:52 Radiologist reports: subdural hemorrhage with chronic component and acute component tw4 20:52 Constitutional: This is a well developed, well nourished patient who is awake, alert, and in no acute distress. Head/Face: Normocephalic, atraumatic. Chest/axilla: Normal chest wall appearance and motion. Nontender with no deformity. No lesions are appreciated. Cardiovascular: Regular rate and rhythm with a normal S1 and S2. No gallops, murmurs, or rubs. Normal PMI, no JVD. No pulse deficits. Respiratory: Lungs have equal breath sounds bilaterally, clear to auscultation and percussion. No rales, rhonchi or wheezes noted. No increased work of breathing, no retractions or nasal flaring. Abdomen/GI: Soft, non-tender, with normal bowel sounds. No distension or tympany. No guarding or rebound. No evidence of tenderness throughout. Back: No spinal tenderness. No costovertebral tenderness. Full range of motion. MS/ Extremity: Pulses equal, no cyanosis. Neurovascular intact. Full, normal range of motion. Neuro: Awake and alert, GCS 15, oriented to person, place, time, and situation. Cranial nerves II-XII grossly intact. Motor strength 5/5 in all extremities. Sensory grossly intact. Cerebellar exam normal. Normal gait. Vital Signs: 19:17 BP 140 / 79; Pulse 77; Resp 16 S; Temp 97.2(TE); Pulse Ox 98% on R/A; Weight 108.86 kg ca1 (R); Height 5 ft. 10 in. (177.80 cm) (R); 20:36 BP 137 / 68; Pulse 70; Resp 18; Pulse Ox 98% ; ea 21:07 BP 136 / 67; Pulse 68; Resp 18; Pulse Ox 98% ; ea 22:00 BP 125 / 52; Pulse 70; Resp 18; Temp 97.6; Pulse Ox 99% on R/A; ea 19:17 Body Mass Index 34.44 (108.86 kg, 177.80 cm) ca1 NIH Stroke Scale Scores: 19:34 NIHSS Score: 0 ea MDM: 20:38 Patient medically screened. tw4 20:52 Differential diagnosis: CVA, TIA. Data reviewed: vital signs, nurses notes. Data tw4 reviewed: lab test result(s), CBC, electrolytes, radiologic studies, CT scan. 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 Counseling: I had a detailed discussion with the patient and/or guardian regarding: the historical points, exam findings, and any diagnostic results supporting the discharge/admit diagnosis, lab results, radiology results. ED course: D/W CT findings with Dr Diaz Neurosurgery from [facility] [place] agreed to Accept pt to the ED under Neurosurgery. 04/12 19:04 Order name: Basic Metabolic Panel; Complete Time: 20:19 04/12 20:19 Interpretation: Normal except: GLUC 112; BUN 21; GFR 64. 04/12 19:04 Order name: CBC with Diff; Complete Time: 20:19 04/12 20:20 Interpretation: Within normal limits. 04/12 19:04 Order name: Protime (+inr); Complete Time: 20:19 04/12 20:20 Interpretation: Within normal limits: PT 12.0. 04/12 19:04 Order name: Ptt, Activated; Complete Time: 20:19 04/12 20:20 Interpretation: Within normal limits: PTT 27.6. 04/12 19:04 Order name: CT Stroke Brain w/o Contrast; Complete Time: 20:19 04/12 20:20 Interpretation: Abnormal. 04/12 19:04 Order name: Stroke CXR 1 View; Complete Time: 22:03 04/12 22:03 Interpretation: Abnormal. 04/12 19:04 Order name: EKG; Complete Time: 19:05 04/12 19:04 Order name: Accucheck; Complete Time: 20:39 04/12 19:04 Order name: Cardiac monitoring; Complete Time: 19:31 04/12 19:04 Order name: EKG - Nurse/Tech; Complete Time: 20:05 04/12 19:04 Order name: IV Saline Lock; Complete Time: 19:31 04/12 19:04 Order name: Labs collected and sent; Complete Time: 19:31 04/12 19:04 Order name: NPO; Complete Time: 19:33 04/12 19:04 Order name: O2 Per Protocol; Complete Time: 19:31 04/12 19:04 Order name: O2 Sat Monitoring; Complete Time: 19:31 tw4 07/11 19:04 Order name: Stroke Swallow Screen; Complete Time: 19:33 tw4 Administered Medications: No medications were administered Disposition: 04/12/20 20:38 Transfer ordered to [facility]. Diagnosis is Nontraumatic subdural hemorrhage, unspecified. - Reason for transfer: Higher level of care. - Accepting physician is Dr Diaz Neurosurgery. - Condition is Stable. - Problem is new. - Symptoms are unchanged. NIH Stroke Scale - NIH Stroke Score Date: 04/12/2020 Time: 19:34 Total Score = 0 1a. Level of Consciousness (LOC) - 0(Alert) 1b. Level of Consciousness (LOC) (Year \T\ Age) - 0(Both) 1c. LOC Commands (Open \T\ Closes Eyes/Tube Room Supervisor) - 0(Both) 2. Best Gaze (Lateral Gaze Paresis) - 0(Normal) 3. Visual Field Loss - 0(No visual loss) 4. Facial Palsy - 0(Normal) 5a. Left Arm: Motor (10-second hold) - 0(No drift) 5b. Right Arm: Motor (10-second hold) - 0(No drift) 6a. Left Leg: Motor (5-second hold - always test supine) - 0(No drift) 6b. Right Leg: Motor (5-second hold - always test supine) - 0(No drift) 7. Limb Ataxia (finger/nose \T\ heel/webb - test with eyes open) - 0(Absent) 8. Sensory Loss (pinprick arms/legs/face) - 0(Normal) 9. Best Language: Aphasia (description/naming/reading) - 0(No aphasia) 10. Dysarthria (speech clarity - read or repeat words) - 0(Normal) 11. Extinction and Inattention (visual/tactile/auditory/spatial/personal) - 0(No abnormality) Initials: na Signatures: Dispatcher [employer] EDLesley Rodriguez RN RN ea Wadley, Terrence, MD MD tw4 Dawn Houston RN RN ca1 Corrections: (The following items were deleted from the chart) 22:05 20:38 04/12/2020 20:38 Transfer ordered to [facility]. Diagnosis ea is Nontraumatic subdural hemorrhage, unspecified. Reason for transfer: Higher level of care. Accepting physician is Dr Diaz Neurosurgery. Condition is Stable. Problem is new. Symptoms are unchanged. tw4
--- NOTE | 2020-04-12 20:39 | ER ---
Nurse's Notes [facility] Name: Brice Roca Age: 64 yrs Sex: Male : 1955 Arrival Date: 04/12/2020 Time: 18:59 Bed 3 Private MD: Diagnosis: Nontraumatic subdural hemorrhage, unspecified Presentation: 04/12 19:17 Chief complaint: Patient states: Slurring and droop on L side of face 30-45 minutes ca1 ago. Reports numbness and tingling of L jaw and L lip. Symptoms resolved upon arrival to the ER. Pt states, "I had this same symptoms once a week ago, and another one on Tuesday". Did not come to the ER or seek medical consult for previous episodes. Pt has a shunt on R temporoparietal area, surgery was done on January 2020. A\\T\\Ox4, No drift. Coronavirus screen: Proceed with normal triage. Patient denies a cough. Patient denies shortness of breath or difficulty breathing. Patient denies measured and/or subjective temperature greater than 100.4F prior to today's visit. Patient denies travel on a cruise ship or to a country the [facility] currently lists as an affected area. Patient denies contact with known and/or suspected case of COVID-19. Ebola Screen: Patient negative for fever greater than or equal to 101.5 degrees Fahrenheit, and additional compatible Ebola Virus Disease symptoms Patient denies exposure to infectious person. Patient denies travel to an Ebola-affected area in the 21 days before illness onset. No symptoms or risks identified at this time. Initial Sepsis Screen: Does the patient meet any 2 criteria? No. Patient's initial sepsis screen is negative. Does the patient have a suspected source of infection? No. Patient's initial sepsis screen is negative. Risk Assessment: Do you want to hurt yourself or someone else? Patient reports no desire to harm self or others. Onset of symptoms was April 12, 2020 at 18:15. 19:17 Method Of Arrival: Wheelchair ca1 19:17 Acuity: ALMA 2 ca1 19:57 No acute neurological deficit is noted. ea Triage Assessment: 20:36 General: Appears in no apparent distress. Behavior is calm, cooperative, appropriate ea for age. 21:01 The onset of the patients symptoms was The onset of the patients symptoms was more than ea six hours ago. 21:01 The onset of the patients symptoms was April 12, 2020 at 16:00. ea 21:01 Neuro: Reports numbness of tongue . ea Stroke Activation: Symptom onset < 3 hours Physician: Stroke Attending; Name: ; Notified At: ; Arrived At: Physician: Chief Stroke Resident; Name: ; Notified At: ; Arrived At: Physician: Stroke Resident; Name: ; Notified At: ; Arrived At: Physician: ED Attending; Name: ; Notified At: ; Arrived At: Physician: ED Resident; Name: ; Notified At: ; Arrived At: Historical: - Allergies: 19: No Known Allergies; ca1 - Home Meds: : losartan 50 mg Oral tab 1 tab once daily [Active]; ca1 - PMHx: : Hypertension; ca1 - PSHx: :31 Hernia repair; Shunt; ca1 - Immunization history:: Adult Immunizations up to date. - Social history:: Smoking status: Patient denies any tobacco usage or history of. Screenin:35 Abuse screen: Denies threats or abuse. Nutritional screening: No deficits noted. ea Tuberculosis screening: No symptoms or risk factors identified. Fall Risk IV access (20 points). Assessment: 19:00 Reassessment: Wheeled to CT. ca1 19:34 VAN Scoring: Arm Drift: Patients demonstrates NO arm weakness. Patient is VAN Negative. ea Patient has been NPO before screening. The patient is alert, and able to follow commands. The patient does not exhibit slurred or garbled speech. The patient is not exhibiting difficulty speaking. The patient does not exhibit difficulty understanding words. The patient is able to swallow own secretions with no drooling or need for suction. Patient tolerated one teaspoon of water. No drooling, immediate coughing, gurgling, or clearing of the throat was noted. The patient tolerated 90mL of water. No drooling, immediate coughing, gurgling, or clearing of the throat was noted. The patient passed the bedside swallow screening. Oral medications may be given as ordered. Contact Physician for further diet orders. Provider notified of bedside swallow screening results: Panfilo Crowell MD. 19:35 Pain: Denies pain. Neuro: Level of Consciousness is awake, alert, obeys commands, ea Oriented to person, place, time, situation, Moves all extremities. Speech is normal, Facial symmetry appears normal. 20:59 Reassessment: Patient and/or family updated on plan of care and expected duration. Pain ea level reassessed. Patient is alert, oriented x 3, equal unlabored respirations, skin warm/dry/pink. provider at bedside updating pt on plan of care. 21:00 T-PA (Activase) Screening: Contraindications:. ea 21:19 Reassessment: report given to TORRES Cortes of [facility] ED. sg 22:03 Reassessment: Patient and/or family updated on plan of care and expected duration. Pain ea level reassessed. Patient is alert, oriented x 3, equal unlabored respirations, skin warm/dry/pink. [facility] at facility for transfer, pt left ED via stretcher per EMS. Pt tolerating well. Vital Signs: 19:17 BP 140 / 79; Pulse 77; Resp 16 S; Temp 97.2(TE); Pulse Ox 98% on R/A; Weight 108.86 kg ca1 (R); Height 5 ft. 10 in. (177.80 cm) (R); 20:36 BP 137 / 68; Pulse 70; Resp 18; Pulse Ox 98% ; ea 21:07 BP 136 / 67; Pulse 68; Resp 18; Pulse Ox 98% ; ea 22:00 BP 125 / 52; Pulse 70; Resp 18; Temp 97.6; Pulse Ox 99% on R/A; ea 19:17 Body Mass Index 34.44 (108.86 kg, 177.80 cm) ca1 NIH Stroke Scale Scores: 19:34 NIHSS Score: 0 ea ED Course: 18:59 Patient arrived in ED. ag5 19:03 Panfilo Crowell MD is Attending Physician. tw4 19:11 CT Stroke Brain w/o Contrast In Process Unspecified. EDMS 19:21 Triage completed. ca1 19:31 Arm band placed on right wrist. ca1 19:33 Lesley Horvath RN is Primary Nurse. ea 19:34 Inserted saline lock: 20 gauge in right antecubital area, using aseptic technique. ea Blood collected. 19:36 Patient has correct armband on for positive identification. Bed in low position. Call ea light in reach. 19:52 Stroke CXR 1 View In Process Unspecified. EDMS 20:10 Initiated transfer with Elisha at [facility]. tt3 20:33 Elisha called back with a physician to do Doc to Doc with Dr. Crowell. tt3 20:37 Elisha Maldonado gave admin approval. Accepting physician is Dr. Ken Gorman. Faxed tt3 MOT and Face sheet to per Elisha's request. The number for the nurse to give report is [phone]. 21:00 No provider procedures requiring assistance completed. Patient transferred, IV remains ea in place. Administered Medications: No medications were administered Outcome: 20:38 ER care complete, transfer ordered by . tw4 21:00 Instructed on the need for transfer, Demonstrated understanding of instructions. ea 21:58 Transferred by ground EMS to [facility], Transfer form completed. ea 21:58 Condition: stable 22:05 Patient left the ED. ea NIH Stroke Scale - NIH Stroke Score Date: 04/12/2020 Time: 19:34 Total Score = 0 1a. Level of Consciousness (LOC) - 0(Alert) 1b. Level of Consciousness (LOC) (Year \\T\\ Age) - 0(Both) 1c. LOC Commands (Open \\T\\ Closes Eyes/Programming Engineer) - 0(Both) 2. Best Gaze (Lateral Gaze Paresis) - 0(Normal) 3. Visual Field Loss - 0(No visual loss) 4. Facial Palsy - 0(Normal) 5a. Left Arm: Motor (10-second hold) - 0(No drift) 5b. Right Arm: Motor (10-second hold) - 0(No drift) 6a. Left Leg: Motor (5-second hold - always test supine) - 0(No drift) 6b. Right Leg: Motor (5-second hold - always test supine) - 0(No drift) 7. Limb Ataxia (finger/nose \\T\\ heel/webb - test with eyes open) - 0(Absent) 8. Sensory Loss (pinprick arms/legs/face) - 0(Normal) 9. Best Language: Aphasia (description/naming/reading) - 0(No aphasia) 10. Dysarthria (speech clarity - read or repeat words) - 0(Normal) 11. Extinction and Inattention (visual/tactile/auditory/spatial/personal) - 0(No abnormality) Initials: ea Signatures: Dispatcher [employer] EDMS Grant Sterling, RN RN Lesley Chahal RN RN ea Wadley, Terrence, MD MD tw4 Dawn Houston RN Neil Seymour ag5 Kapil Roladn tt3 Corrections: (The following items were deleted from the chart) 21:00 20:59 Reassessment: Patient and/or family updated on plan of care and expected ea duration. Pain level reassessed. Patient is alert, oriented x 3, equal unlabored respirations, skin warm/dry/pink. provider at bedside ea
--- NOTE | 2020-04-12 21:15 | RAD REPORT ---
EXAM DESCRIPTION: RAD - Chest Single View - 04/12/2020 7:51 pm CLINICAL HISTORY: SOB, Stroke protocol chest film COMPARISON: May 2014 TECHNIQUE: AP portable chest image was obtained 04/12/2020 7:51 pm . FINDINGS: Lungs are clear. Heart and vasculature are normal. No measurable pleural effusion and no p neumothorax. No acute bony abnormality seen. No acute aortic findings suspected. Shunt tubing overlie s the right side of the chest new from prior study in 2013 IMPRESSION: No acute cardiopulmonary process.
[2020-04-12 22:14] VITALS: BP 125/52; TEMP 97.6; O2SAT 99
== END 2020-04-12 22:05 | disposition short-term general hospital (02) ==
LOC: ER 18:57
DX: I62.00 Nontraumatic subdural hemorrhage, unspecified (principal); I10 Essential (primary) hypertension
CPT/HCPCS: 36415; 70450; 71045; 80048; 85025; 85610; 85730; 99285

== ENCOUNTER 2023-05-06 08:11 | Day surgery (SDC) | payer OTHER ==
[2023-05-06] MEDS ORDERED: Ringers Lactate 1,000 ML IV ONE (09:04)
[2023-05-06 09:21] LABS: Potassium 4.1 mEq/L (3.5-5.1)
[2023-05-06] MEDS ORDERED: propofoL 200 MG/20 ML VIAL IV ONE (12:14)
[2023-05-06] MEDS ORDERED: LIDOCAINE 1% MPF 5 ML VIAL ONE (12:15)
[2023-05-06 15:35] VITALS: BP 127/76; TEMP 97.3; O2SAT 99
--- NOTE | 2023-05-09 13:13 | EKG ---
Test Date: 2023-05-06 Test Time: 08:36:22 [employer] Estate: LEONIE MEASUREMENT RESULTS: Intervals: Rate: 65 OH: 150 QRSD: 110 QT: 384 QTc: 399 Leon: P: 54 OH: 150 QRS: -64 T: 25 INTERPRETIVE STATEMENTS: Sinus rhythm with marked sinus arrhythmia with premature atrial complexes Left axis deviation Right bundle branch block Abnormal ECG No previous ECG available for comparison Electronically Signed On 05-09-23 13:09:31 CDT by Ti Anne
== END 2023-05-06 14:00 | disposition home or self-care (01) ==
LOC: OR 08:11
PROVIDERS: ATTEND Surgery
PROC: 0DBN8ZX Excision of Sigmoid Colon, Via Natural or Artificial Opening Endoscopic, Diagnostic (ICD-10-PCS; 2023-05-06)
PROC: 0DBK8ZX Excision of Ascending Colon, Via Natural or Artificial Opening Endoscopic, Diagnostic (ICD-10-PCS; principal; 2023-05-06 10:30)
DX: Z12.11 Encounter for screening for malignant neoplasm of colon (principal); D12.2 Benign neoplasm of ascending colon; N42.9 Disorder of prostate, unspecified; K57.30 Diverticulosis of large intestine without perforation or abscess without bleeding; K64.8 Other hemorrhoids; D12.5 Benign neoplasm of sigmoid colon
CPT/HCPCS: 93005; 80048; 36415; 88305; 45380; J2704; J2001; J7120; 88304

== ENCOUNTER 2025-05-22 14:14 | Observation (INO) | payer OTHER ==
[2025-05-22 16:01] LABS: Absolute Lymphocytes (CBC) 1.2 K/uL (0.7-4.9); Hematocrit 44.6 % (39.6-49.0); Hemoglobin 15.0 g/dL (13.6-17.9); MCH 29.8 pg (27.0-35.0); MCHC 33.6 g/dL (32.0-36.0); MCV 88.4 fL (80-100); MPV 8.0 fL (7.6-11.3); Nucleated RBC Absolute Count 0.0 (0-0); Nucleated Red Blood Cells % 0.2 % (0-0); RBC Red Blood Cell Count 5.05 M/uL (4.33-5.43); White Blood Count 5.80 thou/uL (4.3-10.9)
[2025-05-22 16:06] LABS: PT Prothrombin Time 12.0 SECONDS (10-13.0); Protime INR 1.06
[2025-05-22 16:08] LABS: Urine Microscopic Reflex YN NO UMIC
[2025-05-22 16:20] LABS: ALT/SGPT 31 U/L (16-61); Albumin 4.0 g/dL (3.4-5.0); Albumin/Globulin Ratio 1.1 (1.1-1.8); Alkaline Phosphatase 56 U/L (45-117); Anion Gap 8.3 mEq/L (5.0-15.0); BUN Blood Urea Nitrogen 14 mg/dL (7-18); Globulin 3.5 g/dL (2.3-3.5); Glucose Level 91 mg/dL (74-106); Lipase 57 U/L (13-75); Magnesium 2.2 mg/dL (1.6-2.4); NT PRO-BNP 40 pg/mL (<125); Potassium 4.3 mEq/L (3.5-5.1); Troponin High Sensitivity 5.9 pg/mL (<58.9)
[2025-05-22 16:23] LABS: AST/SGOT < 10 U/L (15-37); Bilirubin Indirect, Calculated 0.3 mg/dL (0.2-0.8)
--- NOTE | 2025-05-22 16:44 | RAD REPORT ---
EXAMINATION: ONE VIEW CHEST XR CLINICAL INDICATION: Male, 69 years old.,CHEST PAIN TECHNIQUE: Frontal chest projection is submitted. Examination is limited by patient positioning and t echnique. COMPARISON: 04/12/2020. FINDINGS: The lungs are well inflated and clear. No pneumothorax or sizable effusion. The heart is normal in s ize. Mediastinal contours are unremarkable. IMPRESSION: No acute intrathoracic abnormalities.
[2025-05-22] MEDS ORDERED: ASPIRIN 81 MG CHEWABLE TABLET ONE (17:03)
[2025-05-22] MEDS ORDERED: NA CHLORIDE 0.9% 500 ML ONE (17:04)
[2025-05-22] MEDS ORDERED: FAMOTIDINE 20 MG/2 ML VIAL IV ONE (17:04)
--- NOTE | 2025-05-22 18:55 | ER ---
Nurse's Notes [facility] Name: Brice Roca Age: 69 yrs Sex: Male : 1955 Arrival Date: 05/22/2025 Time: 14:14 Bed 5 Private MD: Diagnosis: Chest pain, unspecified;Essential (primary) hypertension;Morbid (severe) obesity with alveolar hypoventilation Presentation: 05/22 14:30 Chief complaint: Patient states: Left sided chest pain that has been intermittent. Pt cm10 went to urgent care this morning and was sent to the ER for abnormal EKG. Coronavirus screen: Client denies travel out of the [place] in the last 14 days. Ebola Screen: Patient denies travel to an Ebola-affected area in the 21 days before illness onset. Initial Sepsis Screen: Does the patient meet any 2 criteria? No. Patient's initial sepsis screen is negative. Does the patient have a suspected source of infection? No. Patient's initial sepsis screen is negative. Risk Assessment: Do you want to hurt yourself or someone else? Patient reports no desire to harm self or others. Onset of symptoms was May 22, 2025. 14:30 Method Of Arrival: Ambulatory cm10 14:30 Acuity: ALMA 3 cm10 Triage Assessment: 14:33 General: Appears in no apparent distress. comfortable, Behavior is calm, cooperative. cm10 Neuro: No deficits noted. Level of Consciousness is awake, alert, obeys commands, Oriented to person, place, time, situation, Appropriate for age. Respiratory: No deficits noted. Airway is patent Respiratory effort is even, unlabored, Respiratory pattern is regular, symmetrical. Historical: - Allergies: 14:33 No Known Allergies; cm10 - PMHx: 14:33 Hypertension; cm10 - PSHx: 14:33 None; cm10 - Immunization history:: Adult Immunizations up to date. - Infectious Disease History:: Denies. - Social history:: Smoking status: Patient denies any tobacco usage or history of. - Family history:: not pertinent. Screenin:28 [facility] ED Fall Risk Assessment (Adult) History of falling in the last 3 months, bp including since admission No falls in past 3 months (0 pts) Confusion or Disorientation No (0 pts) Intoxicated or Sedated No (0 pts) Impaired Gait No (0 pts) Mobility Assist Device Used No (0 pt) Altered Elimination No (0 pt) Score/Fall Risk Level 0 - 2 = Low Risk Oriented to surroundings. Abuse screen: Denies threats or abuse. Denies injuries from another. Nutritional screening: No deficits noted. Tuberculosis screening: No symptoms or risk factors identified. Assessment: 16:27 Reassessment: Patient and/or family updated on plan of care and expected duration. Pain ll1 level reassessed. 17:03 Reassessment: Reassessment: Pt and SO call RN to BS for "low HR", pulse ox tracing ab3 poorly, Cardiac Monitors reapplied with pulse ox adjustment. HR in 50's. Pt then reports return of CP, but states this is "new sharp pain" to Left upper chest, that is more severe than this morning (rates 9/10). Dr. Macdonald notified; orders rec'd to repeat EKG and give morphine/zofran. 17:10 Reassessment: Reassessment: \\T\\1706 repeat EKG done and given to DR. Macdonald. Pt ab3 declines morphine and zofran at this time, though continues to rate pain 8-9/10; Dr. Macdonald notified. TORRES Turcios updated. 18:29 Reassessment: Patient appears in no apparent distress at this time. Patient is alert, bp oriented x 3, equal unlabored respirations, skin warm/dry/pink. 19:23 General: Appears in no apparent distress. comfortable, Behavior is calm, cooperative. lg3 Pain: Denies pain. Neuro: No deficits noted. Clark Agitation-Sedation Scale (RASS): 0 - Alert and Calm Level of Consciousness is awake, alert, obeys commands, Oriented to person, place, time, situation. Cardiovascular: No deficits noted. Denies chest pain, shortness of breath, Capillary refill < 3 seconds Clubbing of nail beds is absent JVD is absent Patient's skin is warm and dry. Respiratory: No deficits noted. Airway is patent Respiratory effort is even, unlabored, Respiratory pattern is regular, symmetrical. GI: No deficits noted. No signs and/or symptoms were reported involving the gastrointestinal system. Abdomen is round non-distended, obese. : No signs and/or symptoms were reported regarding the genitourinary system. EENT: No deficits noted. No signs and/or symptoms were reported regarding the EENT system. Derm: No deficits noted. No signs and/or symptoms reported regarding the dermatologic system. Skin is intact, is healthy with good turgor, Skin is dry, Skin is normal, Skin temperature is warm. Musculoskeletal: No deficits noted. No signs and/or symptoms reported regarding the musculoskeletal system. Circulation, motion, and sensation intact. Range of motion: intact in all extremities. 20:43 Reassessment: Patient appears in no apparent distress at this time. Patient and/or bm8 family updated on plan of care and expected duration. Pain level reassessed. Patient is alert, oriented x 3, equal unlabored respirations, skin warm/dry/pink. Patient states feeling better. 21:00 Reassessment: Patient appears in no apparent distress at this time. No changes from lg3 previously documented assessment. Patient and/or family updated on plan of care and expected duration. Pain level reassessed. Patient is alert, oriented x 3, equal unlabored respirations, skin warm/dry/pink. Patient denies pain at this time. Patient states feeling better. Vital Signs: 14:30 BP 123 / 72; Pulse 54; Resp 18; Temp 97(TE); Pulse Ox 97% on R/A; Weight 122.47 kg; cm10 Height 5 ft. 10 in. ; Pain 0/10; 16:45 BP 126 / 76; Pulse 53; Resp 19; Pulse Ox 95% on R/A; ab3 17:00 Pulse 53; Resp 20; Pulse Ox 97% on R/A; Pain 9/10; ab3 17:15 BP 130 / 90; Pulse 51; Resp 19; Pulse Ox 97% on R/A; Pain 8/10; ab3 18:28 BP 136 / 84; Pulse 51; Resp 17; Pulse Ox 95% ; bp 19:23 BP 136 / 76; Pulse 51; Resp 18 S; Pulse Ox 96% on R/A; Pain 0/10; lg3 20:43 BP 135 / 72; Pulse 56; Resp 18; Temp 97; Pulse Ox 98% ; Pain 0/10; bm8 14:30 Body Mass Index 38.74 (122.47 kg, 177.8 cm) cm10 14:30 Pain Scale: Adult cm10 17:00 Pain Scale: Adult ab3 17:15 Pain Scale: Adult ab3 19:23 Pain Scale: Adult lg3 20:43 Pain Scale: Adult bm8 Vitals: 17:15 Cardiac Rhythm Assessment Sinus gabby. ab3 Geraldine Coma Score: 20:43 Eye Response: spontaneous(4). Motor Response: obeys commands(6). Verbal Response: bm8 oriented(5). Total: 15. ED Course: 14:20 Patient arrived in ED. mr 14:29 Wes Macdonald MD is Attending Physician. yaima 14:32 Triage completed. cm10 14:32 Arm band placed on right wrist. Patient placed in waiting room. EKG completed in cm10 triage. Results shown to MD. 14:33 EKG done, by ED staff, reviewed by Wes Macdonald MD. cm10 15:16 XRAY Chest (1 view) In Process Unspecified. EDMS 15:48 Initial lab(s) drawn, by catheterization laboratory technician, sent to lab. Inserted saline lock: 18 gauge in left ts3 antecubital area, using aseptic technique. Blood collected. Flushed with 10 mL NS. 15:53 Urine collected: clean catch specimen, sent to lab. ts3 16:27 Patient placed in an exam room, on a stretcher. ll1 16:40 Tam Pinzon, RN is Primary Nurse. bp 17:06 EKG done, by ED staff, reviewed by Wes Macdonald MD. ab3 18:37 CT Aorta for Dissection In Process Unspecified. EDMS 18:54 Haris Singleton MD is Hospitalizing Provider. [facility] 19:01 role handed off by Jovanna Núñez, TORRES ab3 19:23 Patient has correct armband on for positive identification. Placed in gown. Bed in low lg3 position. Call light in reach. Side rails up X 1. Client placed on continuous cardiac and pulse oximetry monitoring. NIBP monitoring applied. damascener on. Door closed. Noise minimized. Warm blanket given. Pillow given. Family accompanied patient. 19:23 No provider procedures requiring assistance completed. Patient admitted, IV remains in lg3 place. 19:39 Primary Nurse role handed off by Tam Pinzon, RN rv1 20:06 Laila Fontenot, RN is Primary Nurse. ph 20:43 Provided Education on: need for admission. bm8 Administered Medications: 17:18 Drug: Famotidine IVP 20 mg IVP once; dilute with 10 mL 0.9% NaCl; give over 2 minutes bp Route: IVP; Site: left antecubital; 19:25 Follow up: Response: No adverse reaction lg3 17:18 Drug: Aspirin PO Chewable Tablet 162 mg PO once Route: PO; bp 19:24 Follow up: Response: No adverse reaction lg3 17:18 Not Given (Patient Refused): morphineor iv 2 mg IVP once over 4 mins bp 17:18 Not Given (Patient Refused): ondansetron 4 mg IVP once; over 2 minutes bp 17:19 Drug: NS 0.9% IV 500 ml 500 ml IV at 1 bolus once; to be given as a bolus over 30 bp minutes Volume: 500 ml; Route: IV; Rate: 1 bolus; Site: left antecubital; 19:25 Follow up: Response: No adverse reaction; IV Status: Completed infusion; IV Intake: lg3 500ml 19:22 Drug: Enoxaparin Sub-Q 100 mg Sub-Q once Route: Sub-Q; Site: abdomen; lg3 19:25 Follow up: Response: No adverse reaction lg3 Medication: 19:23 VIS not applicable for this client. lg3 Intake: 19:25 IV: 500ml; Total: 500ml. lg3 Outcome: 18:55 Decision to Hospitalize by Provider. yaima 20:43 Admitted to Tele accompanied by nurse, accompanied by tech, via wheelchair, room 425, bm8 20:43 Condition: stable 20:43 Instructed on follow up and referral plans. the need for admit, Demonstrated understanding of follow-up care, medications, 21:00 Patient left the ED. lg3 Signatures: Dispatcher [employer] EDWes Sierra MD MD cha Rivera, Mary, Reg Reg Laila Fontenot, RN Tam Jang ph, RN RN Kaylen Yanez RN RN lg3 Naldo Diaz RN RN ll1 Marina Haley rv1 Jovita Mcdaniels, RN RN cm10 Óscar Villalba RN RN bm8 Jovanna Núñez, TORRES RN ab3 Jayde Delong ts3 Corrections: (The following items were deleted from the chart) 17:22 17:10 Reassessment: Repeat EKG done at [address] Macdonald. Pt declines ab3 morphine and zofran at this time, though continues to rate pain 8-9/10 to L ant chest; Dr. Macdonald notified. ab3 17:24 17:21 Reassessment: ab3 ab3
--- NOTE | 2025-05-22 18:55 | EDPHYS ---
Physician Documentation [facility] Name: Brice Roca Age: 69 yrs Sex: Male : 1955 Arrival Date: 05/22/2025 Time: 14:14 Bed 5 Private MD: Wes Jang HPI: 05/22 18:48 This 69 yrs old Male presents to ER via Ambulatory with complaints of yaima Abnormal EKG. 18:48 The patient or guardian reports chest pain that is located primarily in the substernal yaima area. Onset: today. The patient has elevated blood pressure and discovered this at home. Onset: The symptoms/episode began/occurred today. Modifying factors: The symptoms are aggravated by activity, The symptoms are alleviated by remaining still. The pain does not radiate. Associated signs and symptoms: The patient has no apparent associated signs or symptoms. Associated signs and symptoms: The patient has no apparent associated signs or symptoms. The chest pain is described as aching. Modifying factors: The symptoms are alleviated by nothing. the symptoms are aggravated by nothing. Historical: - Allergies: 14:33 No Known Allergies; cm10 - PMHx: 14:33 Hypertension; cm10 - PSHx: 14:33 None; cm10 - Immunization history:: Adult Immunizations up to date. - Infectious Disease History:: Denies. - Social history:: Smoking status: Patient denies any tobacco usage or history of. - Family history:: not pertinent. ROS: 18:48 Constitutional: Negative for fever, chills, and weight loss, Eyes: Negative for injury, yaima pain, redness, and discharge, ENT: Negative for injury, pain, and discharge, Neck: Negative for injury, pain, and swelling, Respiratory: Negative for shortness of breath, cough, wheezing, and pleuritic chest pain, Abdomen/GI: Negative for abdominal pain, nausea, vomiting, diarrhea, and constipation, Back: Negative for injury and pain, : Negative for injury, bleeding, discharge, and swelling, MS/Extremity: Negative for injury and deformity, Skin: Negative for injury, rash, and discoloration, Neuro: Negative for headache, weakness, numbness, tingling, and seizure, Psych: Negative for depression, anxiety, suicide ideation, homicidal ideation, and hallucinations, Allergy/Immunology: Negative for hives, rash, and allergies, Endocrine: Negative for neck swelling, polydipsia, polyuria, polyphagia, and marked weight changes, Hematologic/Lymphatic: Negative for swollen nodes, abnormal bleeding, and unusual bruising, 18:48 Cardiovascular: Positive for chest pain, of the chest, Exam: 18:48 Constitutional: This is a well developed, well nourished patient who is awake, alert, yaima and in no acute distress. Head/Face: Normocephalic, atraumatic. Eyes: Pupils equal round and reactive to light, extra-ocular motions intact. Lids and lashes normal. Conjunctiva and sclera are non-icteric and not injected. Cornea within normal limits. Periorbital areas with no swelling, redness, or edema. ENT: Nares patent. No nasal discharge, no septal abnormalities noted. Tympanic membranes are normal and external auditory canals are clear. Oropharynx with no redness, swelling, or masses, exudates, or evidence of obstruction, uvula midline. Mucous membranes moist. Neck: Trachea midline, no thyromegaly or masses palpated, and no cervical lymphadenopathy. Supple, full range of motion without nuchal rigidity, or vertebral point tenderness. No Meningismus. Chest/axilla: Normal chest wall appearance and motion. Nontender with no deformity. No lesions are appreciated. Cardiovascular: Regular rate and rhythm with a normal S1 and S2. No gallops, murmurs, or rubs. Normal PMI, no JVD. No pulse deficits. Respiratory: Lungs have equal breath sounds bilaterally, clear to auscultation and percussion. No rales, rhonchi or wheezes noted. No increased work of breathing, no retractions or nasal flaring. Abdomen/GI: Soft, non-tender, with normal bowel sounds. No distension or tympany. No guarding or rebound. No evidence of tenderness throughout. Back: No spinal tenderness. No costovertebral tenderness. Full range of motion. Male : Normal genitalia with no discharge or lesions. Skin: Warm, dry with normal turgor. Normal color with no rashes, no lesions, and no evidence of cellulitis. MS/ Extremity: Pulses equal, no cyanosis. Neurovascular intact. Full, normal range of motion., bilateral aka Neuro: Awake and alert, GCS 15, oriented to person, place, time, and situation. Cranial nerves II-XII grossly intact. Motor strength 5/5 in all extremities. Sensory grossly intact. Cerebellar exam normal. Normal gait. Psych: Awake, alert, with orientation to person, place and time. Behavior, mood, and affect are within normal limits. 18:48 ECG was reviewed by the Attending Physician. 18:51 ECG was reviewed by the Attending Physician. [facility] Vital Signs: 14:30 BP 123 / 72; Pulse 54; Resp 18; Temp 97(TE); Pulse Ox 97% on R/A; Weight 122.47 kg; cm10 Height 5 ft. 10 in. ; Pain 0/10; 16:45 BP 126 / 76; Pulse 53; Resp 19; Pulse Ox 95% on R/A; ab3 17:00 Pulse 53; Resp 20; Pulse Ox 97% on R/A; Pain 9/10; ab3 17:15 BP 130 / 90; Pulse 51; Resp 19; Pulse Ox 97% on R/A; Pain 8/10; ab3 18:28 BP 136 / 84; Pulse 51; Resp 17; Pulse Ox 95% ; bp 19:23 BP 136 / 76; Pulse 51; Resp 18 S; Pulse Ox 96% on R/A; Pain 0/10; lg3 20:43 BP 135 / 72; Pulse 56; Resp 18; Temp 97; Pulse Ox 98% ; Pain 0/10; bm8 14:30 Body Mass Index 38.74 (122.47 kg, 177.8 cm) cm10 14:30 Pain Scale: Adult cm10 17:00 Pain Scale: Adult ab3 17:15 Pain Scale: Adult ab3 19:23 Pain Scale: Adult lg3 20:43 Pain Scale: Adult bm8 [place] Coma Score: 20:43 Eye Response: spontaneous(4). Motor Response: obeys commands(6). Verbal Response: bm8 oriented(5). Total: 15. MDM: 14:29 Medical Screening Exam initiated [facility] 18:52 Differential diagnosis: abnormal EKG, acute myocardial infarction, acute pericarditis, yaima anxiety, coronary artery disease chest wall pain, cholecystitis, Cholelithiasis costochondritis, hypertensive crisis, Malignant HTN, esophagitis, gastritis, gastroesophageal reflux disease (GERD), herpes zoster, hiatal hernia, pancreatitis, pericarditis, pleurisy, pneumonia, pneumothorax, pulmonary embolus, stable angina, thoracic aortic disection, unstable angina. HEART Score: History: Slightly Suspicious (0), ECG: Non specific repolarization disturbance / LBTB / PM (1), Age: > or = 65 years (2), Risk Factors: > or = 3 Risk factors for atherosclerotic disease (2), [Hypercholesterolemia] [Hypertension] [+ Family HX] [Obesity] Troponin: < or = 1 x Normal Limit (0). The patient was given aspirin in the Emergency Department. GEOFF Risk Score: 1 - patient's age is greater or equal to 65 years, 1 - Three or more CAD risk factors, 1- Known CAD, 1 - ASA use in past 7 days, 1 - Recent [<24hrs] Severe Angina, TOTAL SCORE = 5. Data reviewed: vital signs, nurses notes, lab test result(s), EKG, radiologic studies, CT scan, plain films. Consideration of Admission/Observation Patient was admitted/placed on observation. Escalation of care including admission/observation considered. I considered the following discharge prescriptions or medication management in the emergency department Medications were administered in the Emergency Department. See MAR. Independent interpretation of the following test(s) in the Emergency Department EKG: See my EKG interpretation above. Test considered but Not performed: Ultrasound no 2 d echo. Historians other than the Patient: Spouse/Significant Other: well informed. Care significantly affected by the following chronic conditions: Hypertension, Obesity. Counseling: I had a detailed discussion with the patient and/or guardian regarding the historical points, exam findings, and any diagnostic results supporting the discharge/admit diagnosis, the presence of at least one elevated blood pressure reading (>120/80) during this emergency department visit, lab results, radiology results, the need for further work-up and treatment in the hospital. 05/22 14:30 Order name: Basic Metabolic Panel; Complete Time: 17: [facility] 05/22 14:30 Order name: CBC with Diff; Complete Time: 17: [facility] 05/22 14:30 Order name: LFT's; Complete Time: 17: [facility] 05/22 14:30 Order name: Magnesium; Complete Time: 17: [facility] 05/22 14:30 Order name: NT PRO-BNP; Complete Time: 17: [facility] 05/22 14:30 Order name: PT-INR; Complete Time: 17: [facility] 05/22 14:30 Order name: Troponin HS; Complete Time: 17: [facility] 05/22 14:30 Order name: Lipase; Complete Time: 17:11 [facility] 05/22 14:30 Order name: UA Rfx Malcom Cult if indicated; Complete Time: 17:11 [facility] 05/22 14:30 Order name: XRAY Chest (1 view); Complete Time: 17:11 [facility] 05/22 17:11 Order name: CT Aorta for Dissection [facility] 05/22 14:30 Order name: Cardiac monitoring; Complete Time: 16:41 [facility] 05/22 14:30 Order name: EKG - Nurse/Tech; Complete Time: 15:48 [facility] 05/22 14:30 Order name: IV Saline Lock; Complete Time: 15:48 [facility] 05/22 14:30 Order name: Labs collected and sent; Complete Time: 15:48 [facility] 05/22 14:30 Order name: O2 Per Protocol; Complete Time: 16:41 [facility] 05/22 14:30 Order name: O2 Sat Monitoring; Complete Time: 16:41 [facility] EC:48 Rate is 62 beats/min. Rhythm is regular. QRS Lorenzo is Normal. ID interval is normal. QRS yaima interval is normal. QT interval is normal. No Q waves. T waves are Normal. No ST changes noted. Clinical impression: Normal ECG and No evidence of ischemia. Interpreted by me. Reviewed by me. 18:51 Rate is 56 beats/min. Rhythm is regular. QRS Lorenzo is Normal. ID interval is normal. QRS yaima interval is normal. QT interval is normal. No Q waves. T waves are Normal. No ST changes noted. Clinical impression: Sinus bradycardia. Interpreted by me. Reviewed by me. Administered Medications: 17:18 Drug: Famotidine IVP 20 mg IVP once; dilute with 10 mL 0.9% NaCl; give over 2 minutes bp Route: IVP; Site: left antecubital; 19:25 Follow up: Response: No adverse reaction lg3 17:18 Drug: Aspirin PO Chewable Tablet 162 mg PO once Route: PO; bp 19:24 Follow up: Response: No adverse reaction lg3 17:18 Not Given (Patient Refused): morphineor iv 2 mg IVP once over 4 mins bp 17:18 Not Given (Patient Refused): ondansetron 4 mg IVP once; over 2 minutes bp 17:19 Drug: NS 0.9% IV 500 ml 500 ml IV at 1 bolus once; to be given as a bolus over 30 bp minutes Volume: 500 ml; Route: IV; Rate: 1 bolus; Site: left antecubital; 19:25 Follow up: Response: No adverse reaction; IV Status: Completed infusion; IV Intake: lg3 500ml 19:22 Drug: Enoxaparin Sub-Q 100 mg Sub-Q once Route: Sub-Q; Site: abdomen; lg3 19:25 Follow up: Response: No adverse reaction lg3 Disposition Summary: 05/22/25 18:55 Hospitalization Ordered Notes: Hospitalization Status: Observation yaima Provider: Haris Singleton cha Location: Telemetry/MedSurg (observation) yaima Condition: Stable yaima Problem: new yaima Symptoms: have improved yaima Bed/Room Type: Standard yaima Room Assignment: 425(05/22/25 20:13) rv1 Diagnosis - Chest pain, unspecified yaima - Essential (primary) hypertension yaima - Morbid (severe) obesity with alveolar hypoventilation yaima Forms: - Medication Reconciliation Form yaima - SBAR form yaima - Leadership Thank You Letter yaima Signatures: Dispatcher [employer] Wes Muse MD MD cha Peltier, Brian, RN RN Kaylen Yanez RN RN lg3 Marina Haley rv1 Jovita Mcdaniels RN RN cm10 Corrections: (The following items were deleted from the chart) 20:13 18:55 yaima rv1
[2025-05-22] MEDS ORDERED: ENOXAPARIN 100 MG/ML SYR SQ ONE (19:14)
--- NOTE | 2025-05-22 19:26 | RAD REPORT ---
EXAM: Angio Aorta For Dissection HISTORY: [facility] MAIN NA Abd pain;Dissection Bed Name: 5 COMPARISON: None TECHNIQUE: Multiple contiguous axial images were obtained a CTA of the chest and abdomen with contras t per aortic dissection protocol. Sagittal and coronal 3-D MIP reformats were performed. One or more of the following dose reduction techniques were used: Automated exposure control, adjustment of the mA and kV according to patient size, and iterative reconstruction. Unless otherwise specified, incidental findings do not require dedicated imaging follow-up. FINDINGS: PULMONARY ARTERIES: Normal in caliber without filling defects to suggest pulmonary emboli. MEDIASTINUM: No hilar or mediastinal lymphadenopathy. LUNGS: No focal infiltrates or masses. Suboptimal inspiratory effort limits evaluation. PLEURAL SPACE: No pleural effusion or pneumothorax. LIVER: Unremarkable. KIDNEYS: Unremarkable. SPLEEN: Unremarkable. PANCREAS: Unremarkable. BOWEL: Mild distal colonic diverticulosis. No bowel wall thickening or evidence of obstruction.. RETROPERITONEUM: No lymphadenopathy BONES: Degenerative changes in the spine. Moderate to marked prostatomegaly. Shunt catheter tubing terminates near the anterior abdominal wall. Sequelae of ventral hernia mesh re pairs with diastases recti and small fat-containing supraumbilical hernia versus fat necrosis component. ASCENDING THORACIC AORTA: Normal caliber without evidence of dissection or aneurysmal dilatation. DESCENDING THORACIC AORTA: Normal caliber without evidence of dissection or aneurysmal dilatation. ABDOMINAL AORTA: Normal caliber without evidence of dissection or aneurysmal dilatation. CELIAC TRUNK: Patent SMA: Patent EVERARDO: Patent RENAL ARTERIES: Right single single renal artery with early bifurcation, and left duplicated renal ar shabbir, without significant atherosclerotic disease IMPRESSION: No evidence of thoracic or abdominal aortic aneurysm or dissection. Incidental findings as above.
[2025-05-22] MEDS ORDERED: NITROGLYCERIN 0.4 MG/TAB SL PRN (20:05)
[2025-05-22] MEDS ORDERED: MORPHINE 4 MG/ML SYR IV PRN (20:05)
--- NOTE | 2025-05-22 20:11 | P.HP ---
Certification for Inpatient Patient admitted to: Observation With expected LOS: <2 Midnights Patient will require the following post-hospital care: None Practitioner: I am a practitioner with admitting privileges, knowledge of patient current condition, hospital course, and medical plan of care. Services: Services provided to patient in accordance with Admission requirements found in Title 42 Section 412.3 of the Code of Federal Regulations Patient History Date of Service: 05/22/25 Reason for admission: Chest pain. History of Present Illness: Patient is a pleasant 69-year-old male with past medical history of obesity, essential hypertension, BPH, CS leak and remote post TEST K[employer]OMIST shunt placement, elevated PSA, scheduled for TURP in July/2025. Patient presents to ER complaining of left side chest pain. Patient states he has been having on and off chest pain for some time, states he never seeked medical attention because the chest pain have been mild and goes away eventually. States the chest pain today was so severe, sharp and pressure type of chest pain according to the patient, states the chest pain did not radiate. Denies of any associated shortness of breath. Patient states 2 years ago he had a stress test done by his senior asic engineer, and was negative. Patient has extensive family history of heart disease, states both mom and dad had heart disease, and his sister also has heart disease. Patient initial troponin negative ,EKG with no ST abnormality at this time. During admission assessment, patient was fully awake, alert and oriented x 3, states the chest pain is relieved at this time. Course in the ER: (1) CT dissection. Impression: No evidence of thoracic or abdominal aortic aneurysm or dissection. (2) chest x-ray. Impression: No acute intrathoracic abnormalities. Allergies No Known Allergies Allergy (Verified 05/06/23 10:08) Home Medications: Losartan Potassium [Cozaar*] 50 mg PO DAILY 05/20/17 terbinafine HCL [Lamisil*] 1 tab PO DAILY 05/20/17 Ascorbic Acid [Vitamin C] 500 mg PO BID 05/22/25 Cholecalciferol (Vitamin D3) [Vitamin D3] 05/22/25 Cholecalciferol (Vitamin D3) [Vitamin D3] 100 mcg PO DAILY 05/22/25 Magnesium Oxide [Mag 0X Tab] 400 mg PO DAILY 05/22/25 - Past Medical/Surgical History -: Essential hypertension. -: BPH. -: Umbilical hernia repair. -: Vasectomy reversal. -: Left arm surgery. - Family History Mother -: Heart disease, Stroke, Cancer Brother -: Heart disease ( of heart disease complication.) Father -: Heart disease ( of maker complication.) Sister -: Heart disease - Social History Smoking Status: Never smoker Alcohol use: Yes CD- Drugs: No Caffeine use: Yes Place of Residence: Home Review of Systems 10-point ROS is otherwise unremarkable Cardiovascular: Chest Pain Physical Examination - Physical Exam General: Alert, In no apparent distress, Oriented x3, Cooperative HEENT: Atraumatic, Normocephalic, PERRLA, Mucous membr. moist/pink, Sclerae nonicteric Neck: Supple, 2+ carotid pulse no bruit, No LAD, Without JVD or thyroid abnormality Respiratory: Clear to auscultation bilaterally, Normal air movement Cardiovascular: No edema, Normal pulses, Regular rate/rhythm, Normal S1 S2, Abnormal S3, No gallops, No rubs, No murmurs Capillary refill: <2 Seconds Gastrointestinal: Normal bowel sounds, Soft and benign, Non-distended, W/out hepatomegaly, No ascites, No tenderness, No masses, No rebound, No guarding Musculoskeletal: No clubbing, No swelling, No contractures, No erythema, No tenderness, No warmth Integumentary: No rashes, No breakdown, No significant lesion, No tenderness/swelling, No erythema, No warmth, No cyanosis Neurological: Normal gait, Normal speech, Normal strength at 5/5 x4 extr, Normal tone, Sensation intact, Cranial nerves 3-12 intact, Normal reflexes 2+, Normal affect Lymphatics: No axilla or inguinal lymphadenopathy - Studies Laboratory Data (last 24 hrs) 05/22/25 05/22/25 05/22/25 15:46 15:46 15:46 WBC 5.80 Hgb 15.0 Hct 44.6 Plt Count 221 PT 12.0 INR 1.06 Sodium 140 Potassium 4.3 BUN 14 Creatinine 1.23 Glucose 91 Magnesium 2.2 Total Bilirubin 0.5 AST < 10 L ALT 31 Alkaline Phosphatase 56 Lipase 57 Male Exam - Male Exam Inguinal exam: No hernias Assessment and Plan - Plan Patient reports to ER complaining of chest pain left-sided, states it does not radiate, troponin initial negative EKG with no ST abnormalities. (1)Chest Pain. - Initiate chest pain protocol including nitro sublingual 0.4 mg every 5 ela neil. X 3, morphine 4 mg IV as needed every 4 hours. Telemetry. -Consult senior asic engineer. -Serial troponin every 8 x 3. -EKG every 8 hours 3. -Order echocardiogram. -Aspirin 81 mg p.o. daily. (2)Chronic essential hypertension. -Continue home medication losartan 50 mg p.o. daily. (3) DVT prophylaxis. -Lovenox 40 mg subcu daily. (3)Explained entire treatment plan to the patient, present at the bedside, solicit questions answered and voiced understanding. Discharge Plan: Home Plan to discharge in: 48 Hours - Advance Directives Does patient have a Living Will: No Does patient have a Durable POA for Healthcare: No - Code Status/Comfort Care Code Status Assessed: Yes Code Status: Full Code Critical Care: No Time Spent Managing Pts Care (In Minutes): 55
[2025-05-22 22:49] VITALS: BMI 38.7
[2025-05-23 05:21] LABS: Absolute Lymphocytes (CBC) 1.2 K/uL (0.7-4.9); Hematocrit 41.6 % (39.6-49.0); Hemoglobin 14.7 g/dL (13.6-17.9); MCH 31.2 pg (27.0-35.0); MCHC 35.3 g/dL (32.0-36.0); MCV 88.3 fL (80-100); MPV 8.3 fL (7.6-11.3); Nucleated RBC Absolute Count 0.0 (0-0); Nucleated Red Blood Cells % 0.5 % (0-0); RBC Red Blood Cell Count 4.71 M/uL (4.33-5.43); White Blood Count 5.10 thou/uL (4.3-10.9)
[2025-05-23 06:11] LABS: Anion Gap 10.4 mEq/L (5.0-15.0); BUN Blood Urea Nitrogen 17.0 mg/dL (7-18); Glucose Level 111.0 mg/dL (74-106); Potassium 4.4 mEq/L (3.5-5.1)
[2025-05-23] MEDS: ENOXAPARIN 40 MG/0.4 ML SQ SCH (08:27)
[2025-05-23] MEDS: ASPIRIN EC 81 MG TAB PO SCH (08:27)
[2025-05-23] MEDS: LOSARTAN POTASSIUM 50 MG TABLET PO SCH (08:27)
--- NOTE | 2025-05-23 09:50 | P.CNS ---
Date of Consult: 05/23/25 Chief Complaint: Chest pain. History of Present Illness: Patient with PMH of HTN, presented with sharp left side chest pain, no radiation, no palpitations, no syncope, no breathing problems. Allergies No Known Allergies Allergy (Verified 05/06/23 10:08) Home medications list reviewed: Yes Home Medications: Losartan Potassium [Cozaar*] 50 mg PO DAILY 05/20/17 terbinafine HCL [Lamisil*] 1 tab PO DAILY 05/20/17 Ascorbic Acid [Vitamin C] 500 mg PO BID 05/22/25 Cholecalciferol (Vitamin D3) [Vitamin D3] 05/22/25 Cholecalciferol (Vitamin D3) [Vitamin D3] 100 mcg PO DAILY 05/22/25 Magnesium Oxide [Mag 0X Tab] 400 mg PO DAILY 05/22/25 - Past Medical/Surgical History -: Essential hypertension. -: BPH. -: Umbilical hernia repair. -: Vasectomy reversal. -: Left arm surgery. - Family History Mother Medical History: Heart disease, Stroke, Cancer Brother Medical History: Heart disease ( of heart disease complication.) Father Medical History: Heart disease ( of maker complication.) Sister Medical History: Heart disease - Social History Alcohol use: Yes CD- Drugs: No Caffeine use: Yes Place of Residence: Home Review of Systems 10-point ROS is otherwise unremarkable Physical Examination Temp Pulse Resp BP Pulse Ox 97.8 F 57 16 134/64 93 05/23/25 08:00 05/23/25 08:00 05/23/25 08:00 05/23/25 08:00 05/23/25 08:00 General: Alert, In no apparent distress HEENT: Atraumatic, PERRLA, Mucous membr. moist/pink, EOMI, Sclerae nonicteric Neck: Supple, 2+ carotid pulse no bruit, No LAD, Without JVD or thyroid abnormality Respiratory: Clear to auscultation bilaterally, Normal air movement Cardiovascular: Regular rate/rhythm, Normal S1 S2 Gastrointestinal: Normal bowel sounds, No tenderness Musculoskeletal: No tenderness Integumentary: No rashes Neurological: Normal gait, Normal speech, Normal tone, Normal affect Lymphatics: No axilla or inguinal lymphadenopathy Laboratory Data (last 24 hrs) 05/22/25 05/22/25 05/22/25 15:46 15:46 15:46 WBC 5.80 Hgb 15.0 Hct 44.6 Plt Count 221 PT 12.0 INR 1.06 Sodium 140 Potassium 4.3 BUN 14 Creatinine 1.23 Glucose 91 Magnesium 2.2 Total Bilirubin 0.5 AST < 10 L ALT 31 Alkaline Phosphatase 56 Lipase 57 - Problems (1) Chest pain Current Visit: Yes Status: Acute Plan: troponin negative x3, concern for angina. discussed with patient in details, options of outpatient stress test with his oracle programmer vs coronary angiogram. he want to talk to his oracle programmer first. ASA 81 mg daily (2) HTN (hypertension) Current Visit: Yes Status: Acute Plan: continue losartan 50 mg daily continue to monitor
[2025-05-23] MEDS ORDERED: LIDOCAINE 1% 20 ML MDV ONE (11:21)
[2025-05-23] MEDS ORDERED: HEPA 1000U/500MLS 2,000 UNIT/1,000 ML BAG IV ONE (11:21)
--- NOTE | 2025-05-23 11:45 | ECHO ---
HEIGHT: 5 ft 10 in WEIGHT: 270 lb 0 oz DATE OF STUDY: 05/23/[address]: Rc Shaffer NP 2-DIMENSIONAL: YES M.MODE: YES DOPPLER: YES COLOR FLOW: YES TDS: PORTABLE: YES DEFINITY: BUBBLE STUDY: DIAGNOSIS: CHEST PAIN CARDIAC HISTORY: CATHERIZATION: NO SURGERY: NO PROSTHETIC VALVE: NO PACEMAKER: NO MEASUREMENTS (cm) DIASTOLIC (NORMALS) SYSTOLIC (NORMALS) IVSd 1.4 (0.6-1.2) LA Diam 3.0 (1.9-4.0) LVEF 60-65% LVIDd 3.7 (3.5-5.7) LVIDs 2.6 (2.0-3.5) %FS 28% LVPWd 1.4 (0.6-1.2) Ao Diam 3.3 (2.0-3.7) 2 DIMENSIONAL ASSESSMENT: RIGHT ATRIUM: NORMAL LEFT ATRIUM: NORMAL RIGHT VENTRICLE: NORMAL LEFT VENTRICLE: NORMAL TRICUSPID VALVE: TRACE TRICUSPID REGURGITATION MITRAL VALVE: MILD MITRAL REGURGITATION PULMONIC VALVE: NORMAL AORTIC VALVE: NORMAL PERICARDIAL EFFUSION: NONE AORTIC ROOT: NORMAL LEFT VENTRICULAR WALL MOTION: NORMAL DOPPLER/COLOR FLOW: NORMAL COMMENTS: 1. NORMAL LEFT VENTRICULAR SYSTOLIC FUNCTION, EJECTION FRACTION 60-65%, NORMAL WALL MOTION 2. NORMAL DIASTOLIC FUNCTION 3. MILD AORTIC REGURGITATION TECHNOLOGIST: JAVI MATOS
[2025-05-23] MEDS ORDERED: NA CHLORIDE 0.9% 500 ML ONE (11:48)
[2025-05-23] MEDS ORDERED: MIDAZOLAM HCL 2 MG/2 ML INJ ONE (12:00)
[2025-05-23] MEDS ORDERED: FENTANYL CITR 100 MCG/2 ML ONE (12:00)
[2025-05-23] MEDS ORDERED: FLUMAZENIL 0.1 MG/ML (5 mL VIAL) IV ONE (12:03)
[2025-05-23] MEDS ORDERED: NALOXONE 0.4 MG/ML VIAL ONE (12:03)
[2025-05-23] MEDS ORDERED: CLOPIDOGREL 75 MG TABLET ONE (12:03)
[2025-05-23] MEDS ORDERED: ATROPINE SULF 1 MG/10 ML SYR IV ONE (12:03)
[2025-05-23] MEDS ORDERED: TICAGRELOR 90 MG TABLET PO ONE (12:03)
[2025-05-23] MEDS ORDERED: HEPARIN 5000 UNIT/ML 1 ML VIAL ONE (12:06)
--- NOTE | 2025-05-23 14:48 | P.DS ---
Admission Date: 05/22/25 Discharge Date: 05/23/25 Disposition: ROUTINE DISCHARGE Discharge Condition: FAIR Reason for Admission: Chest pain. Brief History of Present Illness: 69-year-old male with past medical history of obesity, essential hypertension, BPH, CS leak and remote post [facility] shunt placement for idiopathic intracranial pressure, elevated PSA, scheduled for TURP in July/2025 presented to the ER complaining of left side chest pain, intermittent in nature, not related to exertion. Patient states 2 years ago he had a stress test done by his first responder, and was negative. Patient has extensive family history of heart disease. In the ED, initial troponin negative ,EKG with no ST abnormality. CT dissection was done which showed no evidence of thoracic or abdominal aortic aneurysm or dissection. Chest x-ray showed no acute intrathoracic abnormalities. Patient was hospitalized for further chest pain workup. Hospital Course: Diagnosis Chest pain Essential hypertension History of idiopathic intracranial hypertension Morbid obesity. Patient placed on observation on the medical floor. Troponin trending negative. Patient seen and evaluated by cardiology Dr. Soto who performed cardiac catheterization. No cardiac intervention was done. Medical management. Patient has been chest pain-free since hospitalization. Patient deemed stable for discharge per Dr. Soto. He is discharged with aspirin and Lipitor. Vital Signs/Physical Exam: Temp Pulse Resp BP Pulse Ox 97.8 F 54 14 137/64 96 05/23/25 13:57 05/23/25 13:57 05/23/25 13:57 05/23/25 13:57 05/23/25 12:00 General: Alert, In no apparent distress, Oriented x3, Obese HEENT: Mucous membr. moist/pink, Sclerae nonicteric Neck: Supple, JVD distended Respiratory: Clear to auscultation bilaterally, Normal air movement Cardiovascular: No edema, Regular rate/rhythm, Normal S1 S2, No murmurs Gastrointestinal: Normal bowel sounds, Soft and benign, Non-distended, No tenderness Musculoskeletal: No swelling, No tenderness Integumentary: No rashes, No cyanosis Neurological: Normal speech, Normal strength at 5/5 x4 extr, Cranial nerves 3-12 intact Laboratory Data at Discharge: WBC 5.10 thou/uL (4.3-10.9) 05/23/25 04:47 Hgb 14.7 g/dL (13.6-17.9) 05/23/25 04:47 Hct 41.6 % (39.6-49.0) 05/23/25 04:47 Plt Count 212 thou/uL (152-406) 05/23/25 04:47 PT 12.0 SECONDS (10-13.0) 05/22/25 15:46 INR 1.06 05/22/25 15:46 Sodium 141 mEq/L (136-145) 05/23/25 04:47 Potassium 4.4 mEq/L (3.5-5.1) 05/23/25 04:47 BUN 17 mg/dL (7-18) 05/23/25 04:47 Creatinine 1.19 mg/dL (0.70-1.30) 05/23/25 04:47 Glucose 111 mg/dL (74-106) H 05/23/25 04:47 Magnesium 2.2 mg/dL (1.6-2.4) 05/22/25 15:46 Total Bilirubin 0.5 mg/dL (0.2-1.0) 05/22/25 15:46 AST < 10 U/L (15-37) L 05/22/25 15:46 ALT 31 U/L (16-61) 05/22/25 15:46 Alkaline Phosphatase 56 U/L (45-117) 05/22/25 15:46 Lipase 57 U/L (13-75) 05/22/25 15:46 Home Medications: Losartan Potassium [Cozaar*] 50 mg PO DAILY 05/20/17 terbinafine HCL [Lamisil*] 1 tab PO DAILY 05/20/17 Ascorbic Acid [Vitamin C] 500 mg PO BID 05/22/25 Cholecalciferol (Vitamin D3) [Vitamin D3] 05/22/25 Cholecalciferol (Vitamin D3) [Vitamin D3] 100 mcg PO DAILY 05/22/25 Magnesium Oxide [Mag 0X*] 400 mg PO DAILY 05/22/25 Aspirin [Aspirin EC 81 MG] 81 mg PO DAILY #30 tab 05/23/25 Atorvastatin Calcium [Lipitor] 40 mg PO BEDTIME #30 tab 05/23/25 New Medications: Aspirin [Aspirin EC 81 MG] 81 mg PO DAILY #30 tab Atorvastatin Calcium [Lipitor] 40 mg PO BEDTIME #30 tab Diet: AHA Activity: Ad cristian Followup: NONE,NONE [Primary Care Provider] - 1-2 Weeks Time spent managing pt's care (in minutes): 33
[2025-05-23 15:03] VITALS: TEMP 98
[2025-05-23 15:06] VITALS: O2SAT 99
[2025-05-23 16:11] VITALS: BP 143/70
--- NOTE | 2025-05-24 00:12 | OP ---
Date of Procedure: 05/23/2025 Surgeon: Leo Soto Procedure Performed: Selective coronary angiogram. Indication For Procedure: Unstable angina. Complications: None. Estimated Blood Loss: Less than 50 cc. Access: Right radial, closed by TR band. Sedation Time: 20 minutes with 1 of Versed and 25 of fentanyl. Description Of Procedure: After risks, benefits, and alternatives were explained to the patient, the patient agreed to proceed with procedure and signed informed consent. The patient was brought back to the packing house laborer, prepped and draped in sterile fashion. Time-out was performed. Sedation was admini stered. Next, right radial access was obtained using ultrasound-guided micropuncture technique. Tig er 4 catheter was advanced over a J-wire to the aortic root. Selective angiogram was done using same catheter. At the end of procedure, catheter was removed over a J-wire. Sheath was removed. TR ban d was applied. Hemostasis achieved. The patient was moved back to recovery in stable condition. Findings: 1. Left main, normal. 2. LAD, very tortuous artery with mild luminal irregularities. 3. Left circ, small, mild luminal irregularities. 4. RCA, very large, dominant, ectatic artery with mild luminal irregularities. Assessment: Normal coronaries. Plan: To continue medical management. AYO/CHARISMA Voice ID: [id number] Report ID: [id number]
== END 2025-05-23 17:27 | disposition home or self-care (01) ==
LOC: ER 14:14 → ERHOLD 20:04 → 4TH 20:28
PROVIDERS: ADMIT Internal Medicine; ATTEND Internal Medicine
PROC: B2111ZZ Fluoroscopy of Multiple Coronary Arteries using Low Osmolar Contrast (ICD-10-PCS; principal; 2025-05-22)
DX: R07.9 Chest pain, unspecified (principal); I77.1 Stricture of artery; I10 Essential (primary) hypertension; N40.0 Benign prostatic hyperplasia without lower urinary tract symptoms; G93.2 Benign intracranial hypertension; E66.2 Morbid (severe) obesity with alveolar hypoventilation; Z68.38 Body mass index [BMI] 38.0-38.9, adult; Z98.2 Presence of cerebrospinal fluid drainage device; Z87.898 Personal history of other specified conditions; Z82.49 Family history of ischemic heart disease and other diseases of the circulatory system; Z82.3 Family history of stroke
CPT/HCPCS: 96361; 93005 ×3; 93306; 85025 ×2; 80048 ×2; 36415; 83735; 85610; 80076; 81003; 84484 ×2; 83690; 83880; 71275; 74175; 71045; 93454; 76937; 96372; 96374; 99285; Q9967; C1893; Q9966; J1644 ×2; J1650 ×2; J2003; J2250; J3010; G0378 ×4; J7040 ×2; 99152; J0461; J2310